=== PATIENT | female | born 1950 | race Caucasian/White ===

== ENCOUNTER 2025-06-09 16:12 | Inpatient (IN) | payer MEDICARE, OTHER ==
--- OUTSIDE RECORDS SUMMARY | 2025-06-09 16:18 | XMS REPORT | Continuity of Care Document ---
Author Name Unknown Address [address] [facility] [address] [place] [address] [facility] [place] Address [address] [facility] [address] [place] [address] Care Team Providers Care [employer] Programmer Name Role Phone Lisa Cox MD Primary Care Physician [phone] Lisa Cox Attending Clinician Unavail Anjum Nagy MD Attending Clinician [phone] ANJUM GIPSON Attending Clinician Unavail able Doctor Unassigned, Elton Attending Clinician U Merry Guerrero MA Attending Clinician Unavailabl e RADIOLOGY Attending Clinician Unavailable Radiology Attending Clinician Unavailable BONITA HERNANDEZ Attending Clinician Unavailable BONITA HERNANDEZ Attending Clinician Unavailable Doctor Unassigned, Elton Attending Clinician U AIDE Chris Attending Clinician Unavailab Aide Davis DO Attending Clinician [phone] RODNEY BARRIGA Attending Clinician Unavail able RODNEY BARRIGA Attending Clinician Unavail able Rodney Barriga MD Attending Clinician HENNY OSCAR Attending Clinician Unavailable Henny Oscar MD Attending Clinician [phone] ANJUM GIPSON Admitting Clinician Unavail able OSCAR, HENNY Admitting Clinician Unavailable Payers Payer Name Policy Type Policy Number Effective Date Expirati on Date Source [facility] Advantage PPO [id number] 2023 00:00:00 [facility] [employer] Medicare [id number] 2024 00:00:00 MEDICARE PART A \\T\\ B [id number] 2013 00:00:00 [facility] MEDICARE SUPPLEMENT [id number] 2021 00:00:00 Problems Condition Name Condition Details Condition Category Status Onset Date Resolution Date Last Treatment Date Treating Clinician Comments Source Dementia Dementia Disease Active 04-27 00:00: 00 Mary Reyna Epic No known active problems No known active problems Disease [facility] SI - Stress incontinen ce Stress incontinen ce (female) (male) Problem Common [facility] Memory loss Memory loss Problem [facility] Iron deficiency anemia due to chronic blood loss Iron deficiency anemia due to chronic blood loss Problem [facility] Essential hypertensi on Essential hypertensi on Problem [facility] Thrombocyt openia Thrombocyt openia Problem [facility] [id number] Urge incontinen ce Problem [facility] [id number] Vitamin D deficiency Problem [facility] Moderate dementia, unspecifie d dementia type, unspecifie d whether behavioral , psychotic, or mood disturbanc e or anxiety Moderate dementia, unspecifie d dementia type, unspecifie d whether behavioral , psychotic, or mood disturbanc e or anxiety Problem [facility] [id number] Overweight with body mass index (BMI) 25.0-29.9 Problem [facility] [id number] Normocytic anemia Problem [facility] [id number] BMI 25.0-25.9, adult Problem [facility] [id number] Mixed hyperlipid emia Problem [facility] [id number] Other obesity due to excess calories Problem [facility] [id number] Body mass index [BMI] 32.0-32.9, adult Problem [facility] Allergies, Adverse Reactions, Alerts Allergy Name Allergy Type Status Severity Reaction(s) Onset Date Inactive Date Treating Clinician Comments Source CODEINE DRUG INGREDI Active Med Hives 04-07 00:00: 00 MHEOUT MORPHINE DRUG INGREDI Active Med Hives 04-07 00:00: 00 MHEOUT CODEINE DRUG INGREDI Active Unknown-Cmnt 04-07 00:00: 00 [facility] MORPHINE DRUG INGREDI Active Unknown-Cmnt 04-07 00:00: 00 [facility] Codeine Propensi ty to adverse reaction s Active Hives, Unknown 04-07 00:00: 00 Memoria l Axel Epic Morphine Propensi ty to adverse reaction s Active Hives, Unknown 04-07 00:00: 00 Mary Reyna Epic morphine morphine Active Unknown Commo n [facility] ALLERGIE S NOT ON FILE SYSTEMIC Active MHEOUT Social History Social Habit Start Date Stop Date Quantity Comments Source Gender identity Butch toure Axel [facility] Sexual orientation [facility] ASSERTION Possible [facility] Sex Assigned At [facility] History of Tobacco Use [facility] Alcoholic beverage intake 2025-04-20 00:00:00 2025-04-20 00:00:00 Ex-drinker (finding) [facility] History of Social function 2025-04-20 00:00:00 2025-04-20 00:00:00 [facility] Tobacco use and exposure 2024-04-27 00:00:00 2024-04-27 00:00:00 Smokeless tobacco non-user [facility] Sex 2024-02-14 01:30:56 2024-02-14 01:30:56 Female (finding) [facility] Exposure to SARS-CoV-2 (event) 2022-12-24 00:00:00 2023-01-03 13:08:[address] [facility] Smoking Status Start Date Stop Date Source Tobacco smoking consumption unknown [facility] Ex-smoker 2024-04-27 00:00:00 2024-04-27 00:00:00 [facility] Medications Ordered Medication Name Filled Medication Name Start Date Stop Date Current Medication? Ordering Clinician Indication Dosage Frequency Signature (SIG) Comments Components Source memantine (Namenda XR) 28 MG capsule sustained-r elease 24 hr ER capsule memantine (Namenda XR) 28 MG capsule sustained-r elease 24 hr ER capsule 04-20 00:00: 00 04-20 23:59 :00 No 28mg QD Take 1 capsule by mouth [address] [facility] rivastigmin e (Exelon) 4.6 MG/24HR rivastigmin e (Exelon) 4.6 MG/24HR 04-20 00:00: 00 07-19 23:59 :00 No 1{patch } QD Place 1 patch on the skin [address] [facility] rivastigmin e (Exelon) 4.6 MG/24HR rivastigmin e (Exelon) 4.6 MG/24HR 11-11 00:00: 00 04-20 00:00 :00 No APPLY 1 PATCH TO THE SKIN DAILY [facility] memantine (Namenda) 10 MG tablet memantine (Namenda) 10 MG tablet 2023-11 00:00: 00 04-20 00:00 :00 No 10mg Q.5D Take 1 tablet by mouth in the morning and 1 tablet in the evening. [facility] Iron (Ferrous Sulfate) 325 (65 Fe) MG Iron (Ferrous Sulfate) 325 (65 Fe) MG 2023-11 00:00: 00 No 1{table t} Iron (Ferrous Sulfate) 325 (65 Fe) MG rivastigmin e (Exelon) 4.6 MG/24HR rivastigmin e (Exelon) 4.6 MG/24HR 2023-11 0 00:00: 00 11-11 00:00 :00 No 1{patch } QD Place 1 patch over 24 hours on the skin [address] [facility] Exelon 4.6 MG/24HR Exelon 4.6 MG/24HR 07-28 00:00: 00 08-16 00:00 :00 No 1{patch } QD Place 1 patch over 24 hours on the skin 1 time each day. Mary Keene galantamine (Razadyne) 4 MG tablet galantamine (Razadyne) 4 MG tablet 04-27 00:00: 00 07-28 00:00 :00 No 4mg Q.5D Take 1 tablet by mouth in the morning and 1 tablet in the evening. Mary Keene gadoteridol (PROHANCE-1 0 mL) injection 0.2 mL/kg 04-13 21:15: 00 04-13 21:03 :00 No [id number] .2mL/kg 0.2 mL/kg, Intravenou s, ONCE, 1 dose, On Fri04/13/24 at 1615, Routine [facility] lisinopril- hydroCHLORO thiazide 10-12.5 MG tablet lisinopril- hydroCHLORO thiazide 10-12.5 MG tablet 03-17 00:00: 00 Yes 1{tbl} QD Take 1 tablet by mouth 1 time each day. Mary Keene furosemide (Lasix) 40 MG tablet furosemide (Lasix) 40 MG tablet 03-17 00:00: 00 Yes 40mg QD Take 40 mg by mouth 1 time each day. Mary Keene memantine (Namenda) 10 MG tablet memantine (Namenda) 10 MG tablet 03-17 00:00: 00 09-21 00:00 :00 No 10mg Q.5D Take 10 mg by mouth in the morning and 10 mg in the evening. Mary Keene estradioL (ESTRACE) 0.01 % (0.1 mg/gram) vaginal cream 02-22 00:00: 00 Yes [id number] Apply 1g vaginally at bedtime every night for 2 weeks and then apply 1g vaginally at bedtime 3 times per week [facility] sulfamethox azole-trime thoprim (BACTRIM DS) 800-160 mg per tablet 1 tablet 2-07 08:00: 00 12-10 07:30 :00 No 1{tbl} 1 tablet, Oral, ONCE, 1 dose, On Fri12/10/23 at 0200, GURINDER
Re ason for Anti-Infec tive: Documented Infection< br>Documen petra Infection Site: Urine
D uration of Therapy: 7 days [facility] sulfamethox azole-trime thoprim 800-160 mg per tablet 2 00:00: 00 12-16 05:59 :00 No [id number] 1{tbl} Take 1 tablet by mouth every 12 (twelve) hours for 5 days. [facility] cefTRIAXone (ROCEPHIN) 1,000 mg in NaCl 0.9% (NS) 50 mL MINI-BAG 12-03 10:30: 00 12-03 11:37 :00 No 1000mg 1,000 mg, IV Piggyback, ONCE, 1 dose, On Fri12/03/22 at 0430, Administer over 30 Minutes, 50 mL
Reas on for Anti-Infec tive: Documented Infection< br>Documen petra Infection Site: Urine
D uration of Therapy: Other (see Comments) [facility] cefdinir 300 mg capsule 12-03 00:00: 00 Yes [id number] 300mg Take 1 capsule by mouth in the morning and 1 capsule in the evening. [facility] furosemide 20 mg tablet 04-08 00:00: 00 Yes [facility] Galantamine Hydrobromid e 4 MG Galantamine Hydrobromid e 4 MG No 1{table t_with_ meals} BID Galantamin e Hydrobromi de 4 MG Vitamin D3 1.25 MG (69802 UT) Vitamin D3 1.25 MG (20671 UT) No 1{table t} Vitamin D3 1.25 MG (10497 UT) Memantine HCl 10 MG Memantine HCl 10 MG No 1{table t} QD Memantine HCl 10 MG Atorvastati n Calcium 40 MG Atorvastati n Calcium 40 MG No 1{table t} QD Atorvastat in Calcium 40 MG Fish Oil Double Strength 1200 MG Fish Oil Double Strength 1200 MG No 2{capsu le} QD Fish Oil Double Strength 1200 MG Furosemide 40 MG Furosemide 40 MG No 1{table t} QD Furosemide 40 MG Vital Signs Vital Name Observation Time Observation Value Comments S nyla Systolic blood pressure 2025-04-20 14:45:00 164 mm[Hg] [facility] Diastolic blood pressure 2025-04-20 14:45:00 68 mm[Hg] [facility] Heart rate 2025-04-20 14:45:00 85 /min [facility] Body temperature 2025-04-20 14:45:00 37.11 [facility] Respiratory rate 2025-04-20 14:45:00 16 /min [facility] Body height 2025-04-20 14:45:00 163.8 cm Butch [facility] Body weight 2025-04-20 14:45:[address] [facility] BMI 2025-04-20 14:45:00 24.78 kg/m2 Butch [facility] Oxygen saturation in Arterial blood by Pulse oximetry 2025-04-20 14:45:00 97 /min [facility] Systolic blood pressure 2025-04-20 14:45:00 164 mm[Hg] [facility] Diastolic blood pressure 2025-04-20 14:45:00 68 mm[Hg] [facility] Heart rate 2025-04-20 14:45:00 85 /min [facility] Body temperature 2025-04-20 14:45:00 37.11 [facility] Respiratory rate 2025-04-20 14:45:00 16 /min [facility] Body height 2025-04-20 14:45:00 163.8 cm Butch [facility] Body weight 2025-04-20 14:45:[address] [facility] BMI 2025-04-20 14:45:00 24.78 kg/m2 Butch [facility] Oxygen saturation in Arterial blood by Pulse oximetry 2025-04-20 14:45:00 97 /min [facility] height 2025-02-17 13:45:00 62 [in_i] [facility] weight 2025-02-17 13:45:00 132.4 [lb_av] Co [facility] temperature 2025-02-17 13:45:00 97.8 [degF] Com [facility] bmi 2025-02-17 13:45:00 24.21 kg/m2 Comm on [facility] oximetry 2025-02-17 13:45:00 99 % Commo n [facility] respiratory rate 2025-02-17 13:45:00 16 /min Common [facility] blood pressure systolic 2025-02-17 13:45:00 138 mm[Hg] [facility] blood pressure diastolic 2025-02-17 13:45:00 72 mm[Hg] [facility] height 2025-02-17 13:45:00 62 [in_i] Commo n [facility] weight 2025-02-17 13:45:00 132.4 [lb_av] Co mmon [facility] temperature 2025-02-17 13:45:00 97.8 [degF] Com [facility] bmi 2025-02-17 13:45:00 24.21 kg/m2 Comm on [facility] oximetry 2025-02-17 13:45:00 99 % Commo n [facility] respiratory rate 2025-02-17 13:45:00 16 /min [facility] blood pressure systolic 2025-02-17 13:45:00 138 mm[Hg] [facility] blood pressure diastolic 2025-02-17 13:45:00 72 mm[Hg] [facility] Systolic blood pressure 2024-12-22 14:43:00 160 mm[Hg] [facility] Diastolic blood pressure 2024-12-22 14:43:00 72 mm[Hg] [facility] Heart rate 2024-12-22 14:43:00 67 /min [facility] Body temperature 2024-12-22 14:43:[address] [facility] Respiratory rate 2024-12-22 14:43:00 16 /min [facility] Body height 2024-12-22 14:43:00 162.6 cm Butch rial Axel Epic Body weight 2024-12-22 14:43:00 66.225 kg Butch rial Hubbard [facility] BMI 2024-12-22 14:43:00 25.06 kg/m2 Butch rial [facility] Epic Oxygen saturation in Arterial blood by Pulse oximetry 2024-12-22 14:43:00 99 /min [facility] Systolic blood pressure 2024-12-22 14:43:00 160 mm[Hg] [facility] Diastolic blood pressure 2024-12-22 14:43:00 72 mm[Hg] [facility] Heart rate 2024-12-22 14:43:00 67 /min [facility] Body temperature 2024-12-22 14:43:[address] [facility] Respiratory rate 2024-12-22 14:43:00 16 /min [facility] Body height 2024-12-22 14:43:00 162.6 cm [facility] Body weight 2024-12-22 14:43:00 [facility].225 [facility] 2024-12-22 14:43:00 25.06 kg/m2 Butch rial Hubbard Epic Oxygen saturation in Arterial blood by Pulse oximetry 2024-12-22 14:43:00 99 /min [facility] Systolic blood pressure 2024-09-21 14:29:00 175 mm[Hg] [facility] Diastolic blood pressure 2024-09-21 14:29:00 79 mm[Hg] [facility] Heart rate 2024-09-21 14:29:00 60 /min [facility] Axel [facility] Body temperature 2024-09-21 14:29:[address] [facility] Respiratory rate 2024-09-21 14:29:00 16 /min [facility] Body height 2024-09-21 14:29:00 163.2 cm Butch rial Axel [facility] Body weight 2024-09-21 14:29:00 58.514 kg Butch rial Axel [facility] BMI 2024-09-21 14:29:00 21.97 kg/m2 Butch rial Axel Epic Oxygen saturation in Arterial blood by Pulse oximetry 2024-09-21 14:29:00 98 /min [facility] Epic Systolic blood pressure 2024-09-21 14:29:00 175 mm[Hg] [facility] Diastolic blood pressure 2024-09-21 14:29:00 79 mm[Hg] [facility] Epic Heart rate 2024-09-21 14:29:00 60 /min [facility] Epic Body temperature 2024-09-21 14:29:00 36.39 [facility] Res[facility] rate 2024-09-21 14:29:00 16 /min [facility] Epic Body height 2024-09-21 14:29:00 163.2 cm Butch rial [facility] Epic Body weight 2024-09-21 14:29:00 58.514 kg Butch rial [facility] Epic BMI 2024-09-21 14:29:00 21.97 kg/m2 Butch rial Axel Epic Oxygen saturation in Arterial blood by Pulse oximetry 2024-09-21 14:29:00 98 /min [facility] Epic Systolic blood pressure 2024-07-28 13:27:00 146 mm[Hg] [facility] Epic Diastolic blood pressure 2024-07-28 13:27:00 77 mm[Hg] [facility] Epic Heart rate 2024-07-28 13:27:00 76 /min Mem[facility] Epic Body temperature 2024-07-28 13:27:00 37.39 Rosalinda [facility] Axel Epic Respiratory rate 2024-07-28 13:27:00 16 /min [facility] Epic Body height 2024-07-28 13:27:00 160 cm Butch rial [facility] Epic Body weight 2024-07-28 13:27:00 61.236 kg Butch rial [facility] Epic BMI 2024-07-28 13:27:00 23.91 kg/m2 Butch rial [facility] Epic Oxygen saturation in Arterial blood by Pulse oximetry 2024-07-28 13:27:00 97 /min [facility] Epic Systolic blood pressure 2024-07-28 13:27:00 146 mm[Hg] [facility] Epic Diastolic blood pressure 2024-07-28 13:27:00 77 mm[Hg] [facility] Heart rate 2024-07-28 13:27:00 76 /min Memor ial Axel Epic Body temperature 2024-07-28 13:27:00 37.39 [facility] Respiratory rate 2024-07-28 13:27:00 16 /min [facility] Body height 2024-07-28 13:27:00 160 cm Butch rial Axel Epic Body weight 2024-07-28 13:27:00 61.236 kg Butch rial [facility] Epic BMI 2024-07-28 13:27:00 23.91 kg/m2 Butch rial [facility] Epic Oxygen saturation in Arterial blood by Pulse oximetry 2024-07-28 13:27:00 97 /min [facility] Systolic blood pressure 2024-04-27 13:22:00 139 mm[Hg] [facility] Diastolic blood pressure 2024-04-27 13:22:00 76 mm[Hg] [facility] Heart rate 2024-04-27 13:22:00 55 /min Memor ial Axel [facility] Body temperature 2024-04-27 13:22:00 36.72 [facility] Respiratory rate 2024-04-27 13:22:00 16 /min [facility] Body height 2024-04-27 13:22:00 162.6 cm Butch rial Axel [facility] Body weight 2024-04-27 13:22:00 60.51 kg Butch rial Axel Epic BMI 2024-04-27 13:22:00 22.90 kg/m2 Butch rial [facility] Epic Oxygen saturation in Arterial blood by Pulse oximetry 2024-04-27 13:22:00 97 /min [facility] Systolic blood pressure 2024-04-27 13:22:00 139 mm[Hg] [facility] Diastolic blood pressure 2024-04-27 13:22:00 76 mm[Hg] [facility] Heart rate 2024-04-27 13:22:00 55 /min Mem[facility] ial Axel [facility] Body temperature 2024-04-27 13:22:[address] [facility] Epic Respiratory rate 2024-04-27 13:22:00 16 /min [facility] Body height 2024-04-27 13:22:00 162.6 cm Butch rial Axel Epic Body weight 2024-04-27 13:22:00 60.51 kg Butch Reyna [facility] BMI 2024-04-27 13:22:00 22.90 kg/m2 Butch Reyna [facility] Oxygen saturation in Arterial blood by Pulse oximetry 2024-04-27 13:22:00 97 /min [facility] Systolic blood pressure 2024-02-23 16:06:00 124 mm[Hg] [facility] Diastolic blood pressure 2024-02-23 16:06:00 69 mm[Hg] [facility] Heart rate 2024-02-23 16:06:00 78 /min Unive [facility] Body temperature 2024-02-23 16:06:[address] [facility] Respiratory rate 2024-02-23 16:06:00 18 /min [facility] Body height 2024-02-23 16:06:[address] [facility] Body weight 2024-02-23 16:06:00 57.153 kg [facility] BMI 2024-02-23 16:06:00 22.32 kg/m2 Univ [facility] Systolic blood pressure 2024-01-21 16:56:00 187 mm[Hg] [facility] Diastolic blood pressure 2024-01-21 16:56:00 91 mm[Hg] [facility] Heart rate 2024-01-21 16:56:00 72 /min Unive [facility] Body temperature 2024-01-21 16:55:[address] [facility] Respiratory rate 2024-01-21 16:55:00 20 /min [facility] Body weight 2024-01-21 16:55:[address] [facility] BMI 2024-01-21 16:55:00 24.05 kg/m2 Univ [facility] Systolic blood pressure 2023-12-10 07:46:00 180 mm[Hg] [facility] Diastolic blood pressure 2023-12-10 07:46:00 96 mm[Hg] [facility] Heart rate 2023-12-10 07:46:00 70 /min Unive [facility] Body temperature 2023-12-10 07:46:[address] [facility] Respiratory rate 2023-12-10 07:46:00 16 /min [facility] Oxygen saturation in Arterial blood by Pulse oximetry 2023-12-10 07:46:00 100 /min [facility] Body height 2023-12-10 04:02:[address] [facility] Body weight 2023-12-10 04:02:[address] [facility] BMI 2023-12-10 04:02:00 23.79 kg/m2 Univ [facility] Systolic blood pressure 2023-01-03 19:38:00 167 mm[Hg] [facility] Diastolic blood pressure 2023-01-03 19:38:00 79 mm[Hg] [facility] Heart rate 2023-01-03 19:37:00 65 /min Unive [facility] Body height 2023-01-03 19:37:[address] [facility] Body weight 2023-01-03 19:37:00 77.111 kg [facility] BMI 2023-01-03 19:37:00 27.44 kg/m2 [facility] Oxygen saturation in Arterial blood by Pulse oximetry 2023-01-03 19:37:00 100 /min [facility] Systolic blood pressure 2022-12-03 09:17:00 183 mm[Hg] [facility] Diastolic blood pressure 2022-12-03 09:17:00 84 mm[Hg] [facility] Heart rate 2022-12-03 09:17:00 88 /min Unive [facility] Body temperature 2022-12-03 09:17:[address] [facility] Respiratory rate 2022-12-03 09:17:00 17 /min [facility] Body height 2022-12-03 09:17:[address] [facility] Body weight 2022-12-03 09:17:00 81.647 kg [facility] BMI 2022-12-03 09:17:00 29.05 kg/m2 [facility] Oxygen saturation in Arterial blood by Pulse oximetry 2022-12-03 09:17:00 100 /min [facility] Systolic blood pressure 2022-06-07 14:58:00 191 mm[Hg] [facility] Diastolic blood pressure 2022-06-07 14:58:00 77 mm[Hg] [facility] Heart rate 2022-06-07 14:42:00 69 /min [facility] Body height 2022-06-07 14:42:00 167.6 cm [facility] Body weight 2022-06-07 14:42:00 76.658 kg [facility] BMI 2022-06-07 14:42:00 27.28 kg/m2 [facility] Oxygen saturation in Arterial blood by Pulse oximetry 2022-06-07 14:42:00 98 /min [facility] Procedures Procedure Date / Time Performed Performing Clinician Source PHYSICIAN ORDERS 2024-06-10 19:52:53 Doctor Unas signed, Elton [facility] MR BRAIN W WO CONTRAST WITH NEUROQUANT 2024-04-13 20:15:00 Requisition, Paper [facility] CONSENT/REFUSAL FOR DIAGNOSIS AND TREATMENT 2024-01-21 16:39:16 Doctor Unassigned, Elton [facility] REFERRAL- REQUEST/RESPONSE 2024-01-13 05:01:00 Doctor Unassigned, Elton [facility] ASSIGNMENT OF BENEFITS 2023-12-10 06:39:43 Docto r Unassigned, Elton [facility] URINALYSIS 2023-12-10 06:33:[facility] AND TREATMENT 2023-12-10 03:56:35 Doctor Unassigned, Elton [facility] URINALYSIS 2022-12-03 09:43:00 [facility] URINE DRUG (IMMUNOASSAY) - COMPREHENSIVE DRUG SCREEN W/O REFLEX 2022-12-03 09:43:[address] [facility] TROPONIN I 2022-12-03 09:29:00 Henny Oscar [facility] FREE T4 2022-12-03 09:29:00 [facility] THYROID STIMULATING HORMONE 2022-12-03 09:29:[address] [facility] COMP. METABOLIC PANEL ([id number]) 2022-12-03 09:29:[address] [facility] ETHANOL 2022-12-03 09:29:00 [facility] CBC WITH DIFF 2022-12-03 09:29:[address] [facility] PROTHROMBIN TIME / INR 2022-12-03 09:29:[address] [facility] ACTIVATED PARTIAL THRMPLAS ROSI 2022-12-03 09:29:[address] [facility] N-TERMINAL PRO-BNP 2022-12-03 09:29:[address] [facility] Encounters Start Date/Time End Date/Time Encounter Type Admission Type Attending [facility] Care Department Encounter ID Source 2025-01-21 09:26:00 Outpatient [facility] [id number] [facility] 2024-08-12 08:00:00 Outpatient Lisa Cox [facility] [id number] [facility] 2024-01-28 14:57:00 Outpatient Lisa Cox [facility] [id number] [facility] 2023-12-22 13:01:01 Outpatient Lisa Cox [facility] [id number] [facility] 2025-05-29 00:00:00 2025-05-29 00:00:00 (TEL) STLC STLC [id number] [facility] 2025-05-18 00:00:00 2025-05-18 00:00:00 (TEL) STLC STLC [id number] [facility] 2025-05-18 00:00:00 2025-05-18 00:00:00 (TEL) STLMLC STLMLC [id number] [facility] 2025-04-20 14:15:00 2025-04-20 15:48:05 Office Visit Anjum Gipson 1..840.114 350.1.13.70 8.2.7.2.686 [id number] [facility] 2025-04-20 14:03:12 2025-04-20 15:48:05 Outpatient Elective ANJUM GIPSON MHEOUT MHEOUT [id number] [facility] 2025-02-21 00:00:00 2025-02-21 00:00:00 (TEL) STLMLC STLMLC [id number] [facility] 2025-02-17 00:00:00 2025-02-17 00:00:00 OFFICE VISIT ESTAB PT LEVEL 4 STLMLC STLMLC [id number] [facility] 2025-02-17 00:00:00 2025-02-17 00:00:00 SUB ANNUAL [facility] V[facility] STLMLC STLMLC [id number] [facility] 2025-02-17 00:00:00 2025-02-17 00:00:00 (TEL) STLMLC STLMLC [id number] [facility] 2024-12-22 14:45:00 2024-12-22 15:24:01 Office Visit Anjum Gipson Maricruz 1..840.114 350.1.13.70 8.2.7.2.686 [id number] [facility] 2024-12-22 14:28:45 2024-12-22 15:24:01 Outpatient ANJUM GIPSON MHEOUT MHEOUT [id number] MHEOUT 2024-06-10 00:00:00 2024-12-18 07:10:32 Orders Only Doctor Unassigned, Elton Doctor Unassigned, Elton [facility]) 1.2.840.114 350.1.13.10 4.2.7.2.686 [id number] [facility] 2024-11-11 00:00:00 2024-11-11 09:09:22 RefAnjum Carver Mar[place] 1.2.840.114 350.1.13.70 8.2.7.2.686 [id number] Mary [facility] 2024-09-21 13:53:56 2024-09-21 15:07:20 Outpatient Elective ANJUM GIPSON MHEOUT MHEOUT [id number] MHEOUT 2024-09-21 14:00:00 2024-09-21 14:15:00 Office Visit Anjum Gipson [place] 1.2.840.114 350.1.13.70 8.2.7.2.686 [id number] 2024-08-16 00:00:00 2024-08-16 13:07:43 Orders Only Anjum Gipson Mar[place]ruz 1.2.840.114 350.1.13.70 8.2.7.2.686 [id number] [facility] 2024-07-28 13:15:00 2024-07-28 14:04:24 Office Visit Anjum Gipson Mar[place] 1.2.840.114 350.1.13.70 8.2.7.2.686 [id number] [facility] 2024-07-28 13:07:12 2024-07-28 14:04:24 Outpatient LOREANJUM CALIXTO AvelinoOUT EOUT [id number] EOUT 2024-05-04 00:00:00 2024-06-04 23:52:49 Telephone Merry Osullivan [facility] [place] 1.2.840.114 350.1.13.70 8.2.7.2.686 [id number] Memmarcial Reyna [facility] 2024-04-27 13:16:32 2024-04-27 14:48:50 Outpatient ANJUM GIPSON EOUT [facility] [id number] MHEOUT 2024-04-27 13:00:00 2024-04-27 14:48:50 Office Visit Anjum Gipson 1.2.840.114 350.1.13.70 8.2.7.2.686 [id number] Mary Reyna [facility] 2024-04-13 13:21:26 2024-04-13 23:59:00 Outpatient R RADIOLOGY [facility] [id number] [facility] 2024-04-13 13:21:26 2024-04-13 23:59:00 Hospital Encounter Radiology [facility] 1.2.840.114 350.1.13.10 4.2.7.2.686 [id number] [facility] 2024-02-23 11:00:00 2024-02-23 12:14:00 Outpatient R BONITA HERNANDEZ BONITA [facility] [id number] [facility] 2024-02-23 11:00:00 2024-02-23 12:14:00 Office Visit Aissatou Hernandezha [facility] PROFESSIO [facility] 1.2.840.114 350.1.13.10 4.2.7.2.686 [id number] [facility] 2024-01-21 11:30:00 2024-01-21 12:16:52 [facility] [id number] 2024-01-21 11:30:00 2024-01-21 12:16:52 Office Visit Bonita Hernandez [facility] 1.2.840.114 350.1.13.10 4.2.7.2.686 [id number] [facility] 2024-01-21 00:00:00 2024-01-21 00:00:00 Orders Only Doctor Unassigned, Elton [facility] 1.2.840.114 350.1.13.10 4.2.7.2.686 [id number] [facility] 2024-01-13 00:00:00 2024-01-13 00:00:00 Orders Only Doctor Unassigned, Elton [facility] 1.2.840.114 350.1.13.10 4.2.7.2.686 [id number] [facility] 2023-12-09 22:07:00 2023-12-10 01:53:00 Emergency X AIDE DIOR [facility] ERT [id number] [facility] 2023-12-09 22:07:00 2023-12-10 01:53:00 Emergency Aide Dior [facility] 1.2.840.114 350.1.13.10 4.2.7.2.686 [id number] [facility] 2023-03-21 09:40:00 2023-03-21 09:40:00 Outpatient RODNEY LEWIS HOWARD [facility] [id number] [facility] 2023-03-18 13:00:00 2023-03-18 13:00:00 Outpatient RODNEY LEWIS HOWARD [facility] [id number] [facility] 2023-02-28 14:20:00 2023-02-28 14:20:00 Outpatient RODNEY LEWIS HOWARD [facility] [id number] [facility] 2023-02-25 13:00:00 2023-02-25 13:00:00 Outpatient RODNEY LEWIS HOWARD [facility] [id number] [facility] 2023-01-03 13:00:00 2023-01-03 14:55:49 Outpatient RODNEY LEWIS HOWARD [facility] [id number] [facility] 2023-01-03 13:00:00 2023-01-03 14:55:49 Office Visit Rodney Barriga [facility] 1..840.114 350.1.13.10 4.2.7.2.686 [id number] [facility] 2022-12-13 10:40:00 2022-12-13 10:40:00 Outpatient RODNEY LEWIS HOWARD [facility] [id number] [facility] 2022-12-03 03:12:00 2022-12-03 06:02:00 Emergency X EDDIE [facility] [id number] [facility] 2022-12-03 03:12:00 2022-12-03 06:02:00 Emergency Henny Oscar [facility] 1.840.114 350.1.13.10 4.2.7.2.686 [id number] [facility] 2022-06-07 09:20:00 2022-06-07 10:55:10 Outpatient RODNEY LEWIS HOWARD [facility] [id number] [facility] 2022-06-07 09:20:00 2022-06-07 10:55:10 [facility] 1..840.114 350.1.13.10 4.2.7.2.686 [id number] [facility] 2022-06-07 00:00:00 2022-06-07 00:00:00 Orders Only Doctor Unassigned, Elton [facility] 1..840.114 350.1.13.10 4.2.7.2.686 [id number] [facility] 2022-05-02 00:00:00 2022-05-02 00:00:00 Telephone Rodney Barriga [facility] 1.2.840.114 350.1.13.10 4.2.7.2.686 [id number] [facility] 2022-04-07 14:06:00 2022-04-07 18:09:00 Emergency X HENNY OSCAR [facility] ERT [id number] [facility] 2022-04-07 14:06:00 2022-04-07 18:09:00 Emergency Henny Oscar [facility] 1.2.840.114 350.1.13.10 4.2.7.2.686 [id number] [facility] Results Test Description Test Time Test Comments Results Result Comments Source PHYSICIAN ORDERS 19:52:53 Ordered by an unspecified provider. [facility] MR BRAIN W WO CONTRAST WITH NEUROQUANT 22:07:42 MR BRAIN W WO CONTRAST WITH NEUROQUANT COMPARISON: None. Correlation with CT head 12/03/2022 HISTORY: Dementia, memory loss. TECHNIQUE: Multiplanar and multi sequential MRI of the brain with andwithout contrast. Quantitative volumetry of the brain was performed usingNeuroQuant ([employer], [place], [place]) software package. TheNeuroQuant analysis was based on a sagittal 3D volumetric MPRAGE pulsesequence. FINDINGS: The ventricles and cerebral sulci are unchanged in caliber andconfiguration. No midline shift, hydrocephalus or pathological extra-axialfluid collection is present. The basal cisterns are unremarkable. No restricted diffusion is present to suggest acute infarct. . Minimalperiventricular T2/FLAIR hyperintensities are present, nonspecific. Noabnormal gradient blooming. No abnormal intracranial enhancement. The T2 flow voids for the major intracranial vessels are unremarkable. Noabnormal fluid signal is present in the mastoid air cells or paranasal airsinuses. Age Related Atrophy report demonstrates: Hippocampal Occupancy Score: 0.66 with normative percentile of 13.Hippocampi volume: 4.97 cc, normative percentile of 16.Superior Lateral Ventricles volume: 46.2, normative percentile of 89. Inferior Lateral Ventricles volume: 2.63, normative percentile of 83.Temporal cortex: 87.6 cc, normative percentile of 1.Parietal cortex: 77.3 cc, normative percentile of 1.Frontal cortex: 123 cc, normative percentile of 1.Occipital cortex: 40.6 cc, normative percentile of 44.Anterior cingulate cortex: 8.44 cc, normative percentile of 98.Posterior cingulate cortex: 3.96 cc, normative percentile of 1. The values listed above were within 2 SD of the mean. [facility] 10:41:45 ALCOHOL<10mg/dL12/03/2022 4:41 AM [facility]<10 [id number] Toxic>100 Depression of PARENT PARTNER>400 Fatalities ReportedUnMemorial Hermann Southeast HospitalFR [id number] 10:32:56* Test Item Value Reference Range Interpretation Comme nts FREE T4 (test code = 1779588097) 1.34 See_Comment [Automated messa ge] The system which generated this result transmitted reference range: 0.78 - 2.20 ng/dL:. The reference range was not used to interpret this result as normal/abnormal. Lab Interpretation (test code = 23157-0) Normal [facility] [id number] 10:27:17* Test Item Value Reference Range Interpretation Comments TROPONIN I (test code = 8058293397) 0.010 ng/mL See_Comment [Automated message] The system which generated this result transmitted reference range: <=0.034. The reference range was not used to interpret this result as normal/abnormal. CJ (test code = CJ) Reference (Normal) Range (defined by the 99th percentile reference limit): <= 0.034 ng/mL Note: Cardiac troponin begins to rise 3-4 hours after the onset of ischemia. Repeat in 4-6 hours if the sample was drawn within 3-4 hours of the onset of the symptom and found normal. Diagnosis of myocardial injury is made with acute changes in cTn concentrations with at least one serial sample above the 99th percentile upper reference limit (URL), taken together with the patient's clinical presentation. Biotin has been reported to cause a negative bias, interpret results relative to patient's use of biotin. Lab Interpretation (test code = 56865-5) Normal [facility] [id number] 10:24:16* Test Item Value Reference Range Interpretation Comme nts NT-proBNP (test code = 6370626112) 271 pg/mL See_Comment H [Automated message] The system which generated this result transmitted reference range: <=125. The reference range was not used to interpret this result as normal/abnormal. CJ (test code = CJ) Biotin has been reported to cause a negative bias, interpret results relative to patient's use of biotin. Lab Interpretation (test code = 36539-3) Abnormal [facility] METABOLIC PANEL (64222)2022-12-03 10:08:56* Test Item Value Reference Range Interpretation Comme nts NA (test code = 3704216071) 140 mmol/L 135-145 K (test code = 4900680206) 3.8 mmol/L 3.5-5.0 CL (test code = 7278726902) 104 mmol/L 98-108 CO2 TOTAL (test code = 4174951315) 28 mmol/L 23-31 AGAP (test code = 8290856940) 8 2-16 BUN (test code = 2780031773) 17 mg/dL 7-23 GLUCOSE (test code = 1670702711) 113 mg/dL 70-110 H CREATININE (test code = 2303865462) 0.73 mg/dL 0.50-1.04 TOTAL BILI (test code = 8594633807) 0.8 mg/dL 0.1-1.1 CALCIUM (test code = 4246587075) 8.8 mg/dL 8.6-10.6 T PROTEIN (test code = 0910411936) 7.0 g/dL 6.3-8.2 ALBUMIN (test code = 9302949977) 4.2 g/dL 3.5-5.0 ALK PHOS (test code = 7104155375) 64 U/L 34-122 ALTv (test code = 1742-6) 15 U/L 5-35 AST(SGOT) (test code = 2729117984) 21 U/L 13-40 eGFR (test code = 3608070099) 78.1 mL/min/1.73m2 CJ (test code = CJ) Association of Glomerular Filtration Rate (GFR) and Staging of Kidney Disease* + --+ --+ ------+| GFR (mL/min/1.73 m2) ?| With Kidney Damage ?| ?Without Kidney Damage+ --------+ --------+ +| ?>90 ?| ?Stage one ?| ? Normal ?+ ---+ ---+ -------+| ?60-89 ?| ?Stage two ?| ? Decreased GFR ? + --+ --+ ------+| ?30-59 ?| ?Stage three ?| ? Stage three ? + --+ --+ ------+| ?15-29 ?| ?Stage four ? | ? Stage four ?+ ---+ ---+ -------+| ?<15 (or dialysis) ? ?| ?Stage five ? | ? Stage five ?+ ---+ ---+ -------+ *Each stage assumes the associated GFR level has been in effect for at least three months. ?Stages 1 to 5, with or without kidney disease, indicate chronic kidney disease. Notes: Determination of stages one and two (with eGFR >59mL/min/1.73 m2) requires estimation of kidney damage for at least three months as defined by structural or functional abnormalities of the kidney, manifested by either:Pathological abnormalities or Markers of kidney damage (including abnormalities in the composition of the blood or urine or abnormalities in imaging tests). Lab Interpretation (test code = 09372-5) Abnormal [facility] THRMPLAS [id number] 10:05:53* Test Item Value Reference Range Interpretation Comme [facility] APTT Patient (test code = 3173-2) 26 See_Comment [Automated message] The system which generated this result transmitted reference range: 23 - 38 Seconds. The reference range was not used to interpret this result as normal/abnormal. CJ (test code = CJ) The [facility] patient population mean normal value for aPTT is 30 seconds. Lab Interpretation (test code = 62201-1) Normal [facility] / [id number] 10:03:56* Test Item Value Reference Range Interpretation Comme [facility] PROTIME PATIENT (test code = 5964-2) 14.1 See_Comment [Automated [employer] ge] The system which generated this result transmitted reference range: 12.0 - 14.7 Seconds. The reference range was not used to interpret this result as normal/abnormal. INR (test code = 6301-6) 1.1 Normal INR <1.1; Warfarin Therapeutic range 2.0 to 3.0 or 2.5 to 3.5, depending upon the indications. Lab Interpretation (test code = 45856-8) Normal [facility] WITH [id number] 09:55:54* Test Item Value Reference Range Interpretation Comme nts WBC (test code = 6690-2) 4.97 See_Comment [Automated messa ge] The system which generated this result transmitted reference range: 4.30 - 11.10 10*3/?L. The reference range was not used to interpret this result as normal/abnormal. RBC (test code = 789-8) 3.19 See_Comment L [Automated messa ge] The system which generated this result transmitted reference range: 3.93 - 5.25 10*6/?L. The reference range was not used to interpret this result as normal/abnormal. HGB (test code = 718-7) 10.1 g/dL 11.6-15.0 L HCT (test code = 4544-3) 31.3 % 35.7-45.2 L MCV (test code = 787-2) 98.1 fL 80.6-95.5 H MCH (test code = 785-6) 31.7 pg 25.9-32.8 MCHC (test code = 786-4) 32.3 g/dL 31.6-35.1 RDW-SD (test code = 00213-8) 54.6 fL 39.0-49.9 H RDW-CV (test code = 788-0) 14.9 % 12.0-15.5 PLT (test code = 777-3) 129 See_Comment L [Automated messa ge] The system which generated this result transmitted reference range: 166 - 358 10*3/?L. The reference range was not used to interpret this result as normal/abnormal. MPV (test code = 66602-8) 10.0 fL 9.5-12.9 NRBC/100 WBC (test code = 4003877615) 0.0 See_Comment [Automated [employer] ssage] The system which generated this result transmitted reference range: 0.0 - 10.0 /100 WBCs. The reference range was not used to interpret this result as normal/abnormal. NRBC x10^3 (test code = 8856677043) See_Comment [Automated messa ge] The system which generated this result transmitted reference range: 10*3/?L. The reference range was not used to interpret this result as normal/abnormal. GRAN MAT (NEUT) % (test code = 770-8) 61.0 % IMM GRAN % (test code = 0099072115) 0.20 % LYMPH % (test code = 736-9) 22.3 % MONO % (test code = 5905-5) 13.5 % EOS % (test code = 713-8) 2.4 % BASO % (test code = 706-2) 0.6 % GRAN MAT x10^3(ANC) (test code = 4441817371) 3.03 10*3/uL 1.88-7.09 IMM GRAN x10^3 (test code = 6263522005) 0.00-0.06 LYMPH x10^3 (test code = 731-0) 1.11 10*3/uL 1.32-3.29 L MONO x10^3 (test code = 742-7) 0.67 10*3/uL 0.33-0.92 EOS x10^3 (test code = 711-2) 0.12 10*3/uL 0.03-0.39 BASO x10^3 (test code = 704-7) 0.03 10*3/uL 0.01-0.07 Lab Interpretation (test code = 73257-5) Abnormal [facility] Notes has a current medication list which includes the following prescription(s):Vitals:Neurological ExamCranial NervesMotorSensoryReflexesGaitNo results found for this or any previous visit.Tests Date/Time Note Provider Source 2025-04-20 17:46:06 [facility] 2025-04-20 17:46:06 Anjum Gipson MD - 04/20/2025 2:15 PM CDT History of Present Illness HPI The patient is a 74-year-old female with a history of dementia, presenting for follow-up. She is accompanied by a family member who provides additional history. The patient reports a few instances of "wandering in the storm." She lives alone in her own house and enjoys her independence. She mentions having people staying in her house and going up and down into the attic, stating that these are "real people, not imaginary people," though others did not see them at the time. She is aware of discussions about someone potentially needing to obtain guardianship over her. Her nephew, who lives in [place], has power of tax attorney. She has no children. She manages her own medications with assistance from a family member who organizes her pill box. She is able to dress herself, brush her teeth, and shower independently. Most meals are provided, but she can use the microwave. She does not drive but goes shopping with transportation provided by a family member. She is mobile and able to walk. She is currently taking memantine but only one dose per day due to difficulty remembering the morning dose if no one is present. A family member administers the evening dose and changes her patch. Allergies as of 04/20/2025 - Reviewed 04/20/2025 Allergen Reaction Noted Codeine Hives and Unknown 04/07/2022 Morphine Hives and Unknown 04/07/2022 furosemide, lisinopril-hydrochlorothiazide, memantine, and rivastigmine. Neurological: (+) memory loss 04/20/25 1445 BP: (!) 164/68 Pulse: 85 Resp: 16 Temp: 37.1 ?C (98.8 ?F) SpO2: 97% Mental Status Awake and alert. Recalls 3 of 3 objects immediately. Speech is normal. Able to name objects and name parts of objects. MMSE score: 18. CN II: Visual acuity is normal. CN III, IV, : Extraocular movements intact bilaterally. Pupils equal round and reactive to light bilaterally. CN VII: Full and symmetric facial movement. CN XII: Tongue midline without atrophy or fasciculations. Strength is 5/5 throughout all four extremities. Light touch is normal in upper and lower extremities. Temperature is normal in upper and lower extremities. Vibration is normal in upper and lower extremities. Deep tendon reflexes: Symmetric. Casual gait is normal including stance, stride, and arm swing. No MRI head results found for the past 12 months Labs Imaging (Today) Cognitive Assessment: - Orientation: Disoriented to the current year, date, and day of the week; identified the state correctly. - Registration: Correctly repeated apple, table, and bruno initially. - Recall: Recalled 0 of the 3 words after a brief interval. - Serial Spelling: Spelled world backward as D-L-O-W, omitting the R. - Repetition: Accurately repeated No ifs, ands, or buts. - Visuospatial Task: Copied a presented figure with inaccuracy. - Writing: Followed commands (folded paper in half and returned it). # Moderate late onset Alzheimer's dementia, unspecified whether behavioral, psychotic, or mood disturbance or anxiety (HCC) (G30.1) - Patient exhibits signs of cognitive decline, including disorientation to time and difficulty with short-term memory recall. - Currently on memantine, but experiencing difficulty with adherence to twice-daily dosing. - Transitioned memantine to 28 mg extended-release formulation to simplify dosing to once daily. - Discussed living situation and potential need for guardianship; patient has a power of tax attorney in place. - Follow-up in 3-4 months to reassess cognitive function and medication adherence. - Should have 24 hour supervision Time: 35 min care services that are part of ongoing care related to this patient's single, serious condition or complex condition. [facility] Due Date Last Done Comments Bone Density Scan 1950 Lipid Panel 1950 Medicare Annual Wellness (AWV) 1950 DTaP/Tdap/Td Vaccines (1 - Tdap) 1967 Pneumococcal Vaccine: 50+ Ye ars (1 of 1 - PCV) 1998 Zoster Vaccines (1 of 2) 1998 Respiratory Syncytial Virus (RSV) Adult Series (1 - 1-dose 75+ series) 2023 Influenza Vaccine (Season Ended) 2025 HIB Vaccines Aged Out No longer eligi ble based on patient's age to complete this topic HPV Vaccines Aged Out No longer eligi ble based on patient's age to complete this topic Hepatitis A Vaccines Aged Out No long er eligible based on patient's age to complete this topic Hepatitis B Vaccines Aged Out No long er eligible based on patient's age to complete this topic IPV Vaccines Aged Out No longer eligi ble based on patient's age to complete this topic Meningococcal Vaccine Aged Out No lion gudelia eligible based on patient's age to complete this topic Rotavirus Vaccines Aged Out No longer eligible based on patient's age to complete this topic [facility] 17[facility]46:06 Diagnosis Moderate late onset Alzheime r's dementia, unspecified whether behavioral, psychotic, or mood disturbance or anxiety (HCC) - Primary [facility]160[facility]-65 17:46:06 [facility]mj[facility]ai3897-83-23 17:46:06* [facility]bk[facility]992[facility]-54 17:46:06* Anjum Gipson MD - 04/20/2025 2:15 PM CDT History of Present Illness HPI The patient is a 74-year-old female with a history of dementia, presenting for follow-up. She is accompanied by a family member who provides additional history. The patient reports a few instances of "wandering in the storm." She lives alone in her own house and enjoys her independence. She mentions having people staying in her house and going up and down into the attic, stating that these are "real people, not imaginary people," though others did not see them at the time. She is aware of discussions about someone potentially needing to obtain guardianship over her. Her nephew, who lives in [place], has power of tax attorney. She has no children. She manages her own medications with assistance from a family member who organizes her pill box. She is able to dress herself, brush her teeth, and shower independently. Most meals are provided, but she can use the microwave. She does not drive but goes shopping with transportation provided by a family member. She is mobile and able to walk. She is currently taking memantine but only one dose per day due to difficulty remembering the morning dose if no one is present. A family member administers the evening dose and changes her patch. Allergies as of 04/20/2025 - Reviewed 04/20/2025 Allergen Reaction Noted Codeine Hives and Unknown 04/07/2022 Morphine Hives and Unknown 04/07/2022 has a current medication list which includes the following prescription(s): furosemide, lisinopril-hydrochlorothiazide, memantine, and rivastigmine. Neurological: (+) memory loss Vitals:04/20/25 1445 BP: (!) 164/68 Pulse: 85 Resp: 16 Temp: 37.1 ?C (98.8 ?F) SpO2: 97% Neurological Exam Mental Status Awake and alert. Recalls 3 of 3 objects immediately. Speech is normal. Able to name objects and name parts of objects. MMSE score: 18. Cranial NervesCN II: Visual acuity is normal. CN III, IV, : Extraocular movements intact bilaterally. Pupils equal round and reactive to light bilaterally. CN VII: Full and symmetric facial movement. CN XII: Tongue midline without atrophy or fasciculations. MotorStrength is 5/5 throughout all four extremities. SensoryLight touch is normal in upper and lower extremities. Temperature is normal in upper and lower extremities. Vibration is normal in upper and lower extremities. ReflexesDeep tendon reflexes: Symmetric. GaitCasual gait is normal including stance, stride, and arm swing. No results found for this or any previous visit. No MRI head results found for the past 12 months Labs Imaging Tests(Today) Cognitive Assessment: - Orientation: Disoriented to the current year, date, and day of the week; identified the state correctly. - Registration: Correctly repeated “apple,” “table,” and “bruno” initially. - Recall: Recalled 0 of the 3 words after a brief interval. - Serial Spelling: Spelled “world” backward as “D-L-O-W,” omitting the “R.” - Repetition: Accurately repeated “No ifs, ands, or buts.” - Visuospatial Task: Copied a presented figure with inaccuracy. - Writing: Followed commands (folded paper in half and returned it). Assessment & Plan# Moderate late onset Alzheimer's dementia, unspecified whether behavioral, psychotic, or mood disturbance or anxiety (HCC) (G30.1) - Patient exhibits signs of cognitive decline, including disorientation to time and difficulty with short-term memory recall. - Currently on memantine, but experiencing difficulty with adherence to twice-daily dosing. - Transitioned memantine to 28 mg extended-release formulation to simplify dosing to once daily. - Discussed living situation and potential need for guardianship; patient has a power of tax attorney in place. - Follow-up in 3-4 months to reassess cognitive function and medication adherence. - Should have 24 hour supervision Time: 35 min I am the continuing focal point for needed health care services and medicalcare services that are part of ongoing care related to this patient's single, serious condition or complex condition. [facility] 17:46:06Upcoming Encounters Health Maintenance Due Date Last Done Comments Bone Density Scan 1948 Lipid Panel 1948 Medicare Annual Wellness (AWV) 1948 DTaP/Tdap/Td Vaccines (1 - Tdap) 1967 Pneumococcal Vaccine: 50+ Ye ars (1 of 1 - PCV) 1998 Zoster Vaccines (1 of 2) 1998 Respiratory Syncytial Virus (RSV) Adult Series (1 - 1-dose 75+ series) 2023 Influenza Vaccine (Season Ended) 2025 HIB Vaccines Aged Out No longer eligi ble based on patient's age to complete this topic HPV Vaccines Aged Out No longer eligi ble based on patient's age to complete this topic Hepatitis A Vaccines Aged Out No long er eligible based on patient's age to complete this topic Hepatitis B Vaccines Aged Out No long er eligible based on patient's age to complete this topic IPV Vaccines Aged Out No longer eligi ble based on patient's age to complete this topic Meningococcal Vaccine Aged Out No lion gudelia eligible based on patient's age to complete this topic Rotavirus Vaccines Aged Out No longer eligible based on patient's age to complete this topic [id number] 17:46:06 Diagnosis Moderate late onset Alzheime r's dementia, unspecified whether behavioral, psychotic, or mood disturbance or anxiety (HCC) - Primary [id number] 17:46:06 [facility] HospitalQvucoyx7655-75-09 17:41:00* [facility] HospitalMnzjiaq0492-52-85 17:41:00* Anjum Gipson MD - 12/22/2024 2:45 PM CASTING COORDINATOR History of Present Illness Memory Loss Not driving. On Exelon and Namenda. Lives alone. Thinks someone may be taking her medication but as noted she lives alone. Still sleepy on occasion. No new problems otherwise Allergies as of 12/22/2024 - Reviewed 12/22/2024 Allergen Reaction Noted Codeine Hives and Unknown 04/07/2022 Morphine Hives and Unknown 04/07/2022 has a current medication list which includes the following prescription(s): furosemide, lisinopril-hydrochlorothiazide, memantine, and rivastigmine. Vitals:12/22/24 1443 BP: 160/72 Pulse: 67 Resp: 16 Temp: 36.2 ?C (97.2 ?F) SpO2: 99% Neurological Exam Mental Status Awake and alert. Speech is normal. Cranial NervesCN II: Visual acuity is normal. CN III, IV, : Extraocular movements intact bilaterally. Pupils equal round and reactive to light bilaterally. CN VII: Full and symmetric facial movement. CN XII: Tongue midline without atrophy or fasciculations. MotorStrength is 5/5 throughout all four extremities. SensoryLight touch is normal in upper and lower extremities. Temperature is normal in upper and lower extremities. Vibration is normal in upper and lower extremities. ReflexesDeep tendon reflexes: Symmetric. GaitCasual gait is normal including stance, stride, and arm swing. No results found for this or any previous visit. No MRI head results found for the past 12 months Assessment & PlanDiagnoses and all orders for this visit: Moderate dementia, unspecified dementia type, unspecified whether behavioral, psychotic, or mood disturbance or anxiety (HCC) Continue Exelon and Namenda I am the continuing focal point for needed health care services and medicalcare services that are part of ongoing care related to this patient's single, serious condition or complex condition. [facility]2025-02-19 17:41:00Upcoming Encounters Health Maintenance Due Date Last Done Comments Bone Density Scan 1948 CT Colonography 1948 Colonoscopy 1948 Colorectal Cancer Screening 1948 FIT-DNA 1948 FIT 1948 FOBT 1948 Lipid Panel 1948 Medicare Annual Wellness (AWV) 1948 Sigmoidoscopy 1948 Annual Physical 1951 DTaP/Tdap/Td Vaccines (1 - Tdap) 1967 Zoster Vaccines (1 of 2) 1998 Pneumococcal Vaccine: 65+ Ye ars (1 of 1 - PCV) 2013 Respiratory Syncytial Virus (RSV) or >=60 (1 - 1-dose 75+ series) 2023 Influenza Vaccine (#1) 2024 HIB Vaccines Aged Out No longer eligi ble based on patient's age to complete this topic HPV Vaccines Aged Out No longer eligi ble based on patient's age to complete this topic Hepatitis A Vaccines Aged Out No long er eligible based on patient's age to complete this topic Hepatitis B Vaccines Aged Out No long er eligible based on patient's age to complete this topic IPV Vaccines Aged Out No longer eligi ble based on patient's age to complete this topic Meningococcal Vaccine Aged Out No lion gudelia eligible based on patient's age to complete this topic Rotavirus Vaccines Aged Out No longer eligible based on patient's age to complete this topic [facility] HospitalTmbtwhm7027-33-40 17:41:00 Diagnosis Moderate dementia, unspecifi ed dementia type, unspecified whether behavioral, psychotic, or mood disturbance or anxiety (HCC) - Primary [facility] HospitalClxfzqj3467-59-24 17:41:00 [place] [id number] 17:40:59Upcoming Encounters Health Maintenance Due Date Last Done Comments Bone Density Scan 1948 CT Colonography 1948 Colonoscopy 1948 Colorectal Cancer Screening 1948 FIT-DNA 1948 FIT 1948 FOBT 1948 Lipid Panel 1948 Medicare Annual Wellness (AWV) 1948 Sigmoidoscopy 1948 Annual Physical 1951 DTaP/Tdap/Td Vaccines (1 - Tdap) 1967 Zoster Vaccines (1 of 2) 1998 Pneumococcal Vaccine: 65+ Ye ars (1 of 1 - PCV) 2013 Respiratory Syncytial Virus (RSV) or >=60 (1 - 1-dose 75+ series) 2023 Influenza Vaccine (#1) 2024 HIB Vaccines Aged Out No longer eligi ble based on patient's age to complete this topic HPV Vaccines Aged Out No longer eligi ble based on patient's age to complete this topic Hepatitis A Vaccines Aged Out No long er eligible based on patient's age to complete this topic Hepatitis B Vaccines Aged Out No long er eligible based on patient's age to complete this topic IPV Vaccines Aged Out No longer eligi ble based on patient's age to complete this topic Meningococcal Vaccine Aged Out No lion gudelia eligible based on patient's age to complete this topic Rotavirus Vaccines Aged Out No longer eligible based on patient's age to complete this topic [facility]Rwhxwkt7426-35-53 17:40:59 Diagnosis Moderate dementia, unspecifi ed dementia type, unspecified whether behavioral, psychotic, or mood disturbance or anxiety (HCC) - Primary [facility] HospitalOtjmapr6849-23-89 17:40:59 [facility] HospitalFxhwdxc1621-21-08 17:40:59* [facility] HospitalOdkhrwo3397-88-59 17:40:59* Anjum Gipson MD - 12/22/2024 2:45 PM CASTING COORDINATOR History of Present Illness Memory Loss Not driving. On Exelon and Namenda. Lives alone. Thinks someone may be taking her medication but as noted she lives alone. Still sleepy on occasion. No new problems otherwise Allergies as of 12/22/2024 - Reviewed 12/22/2024 Allergen Reaction Noted Codeine Hives and Unknown 04/07/2022 Morphine Hives and Unknown 04/07/2022 has a current medication list which includes the following prescription(s): furosemide, lisinopril-hydrochlorothiazide, memantine, and rivastigmine. Vitals:12/22/24 1443 BP: 160/72 Pulse: 67 Resp: 16 Temp: 36.2 ?C (97.2 ?F) SpO2: 99% Neurological Exam Mental Status Awake and alert. Speech is normal. Cranial NervesCN II: Visual acuity is normal. CN III, IV, : Extraocular movements intact bilaterally. Pupils equal round and reactive to light bilaterally. CN VII: Full and symmetric facial movement. CN XII: Tongue midline without atrophy or fasciculations. MotorStrength is 5/5 throughout all four extremities. SensoryLight touch is normal in upper and lower extremities. Temperature is normal in upper and lower extremities. Vibration is normal in upper and lower extremities. ReflexesDeep tendon reflexes: Symmetric. GaitCasual gait is normal including stance, stride, and arm swing. No results found for this or any previous visit. No MRI head results found for the past 12 months Assessment & PlanDiagnoses and all orders for this visit: Moderate dementia, unspecified dementia type, unspecified whether behavioral, psychotic, or mood disturbance or anxiety (HCC) Continue Exelon and Namenda I am the continuing focal point for needed health care services and medicalcare services that are part of ongoing care related to this patient's single, serious condition or complex condition. ING COORDINATOR [facility] [id number] 09:09:32* [facility] CenterYtdjxlf2711-[facility] 09:09:32Upcoming Encounters Health Maintenance Due Date Last Done Comments Bone Density Scan 1948 CT Colonography 1948 Colonoscopy 1948 Colorectal Cancer Screening 1948 FIT-DNA 1948 FIT 1948 FOBT 1948 Lipid Panel 1948 Medicare Annual Wellness (AWV) 1948 Sigmoidoscopy 1948 Annual Physical 1951 DTaP/Tdap/Td Vaccines (1 - Tdap) 1967 Zoster Vaccines (1 of 2) 1998 Pneumococcal Vaccine: 65+ Ye ars (1 of 1 - PCV) 2013 Respiratory Syncytial Virus (RSV) or >=60 (1 - 1-dose 75+ series) 2023 Influenza Vaccine (#1) 2024 HIB Vaccines Aged Out No longer eligi ble based on patient's age to complete this topic HPV Vaccines Aged Out No longer eligi ble based on patient's age to complete this topic Hepatitis A Vaccines Aged Out No long er eligible based on patient's age to complete this topic Hepatitis B Vaccines Aged Out No long er eligible based on patient's age to complete this topic IPV Vaccines Aged Out No longer eligi ble based on patient's age to complete this topic Meningococcal Vaccine Aged Out No lion gudelia eligible based on patient's age to complete this topic Rotavirus Vaccines Aged Out No longer eligible based on patient's age to complete this topic [id number] 09:09:32 [facility]Yqvvggw9894-46-60 15:03:28* [facility] CenterVpyhyej1915-29-33 15:03:28* Anjum Gipson MD - 09/21/2024 2:00 PM CASTING COORDINATOR History of Present Illness Memory Loss Stable, no side effects on the Exelon. More alert, less sleepy. No rash on the Exelon patch. No new problems Allergies as of 09/21/2024 - Reviewed 09/21/2024 Allergen Reaction Noted Codeine Hives and Unknown 04/07/2022 Morphine Hives and Unknown 04/07/2022 has a current medication list which includes the following prescription(s): furosemide, lisinopril-hydrochlorothiazide, rivastigmine, and memantine. Vitals:09/21/24 1429 BP: 175/79 Pulse: 60 Resp: 16 Temp: 36.4 ?C (97.5 ?F) SpO2: 98% Neurological Exam Mental Status Awake and alert. Speech is normal. Cranial NervesCN II: Visual acuity is normal. CN III, IV, : Extraocular movements intact bilaterally. Pupils equal round and reactive to light bilaterally. CN VII: Full and symmetric facial movement. CN XII: Tongue midline without atrophy or fasciculations. MotorStrength is 5/5 throughout all four extremities. SensoryLight touch is normal in upper and lower extremities. Temperature is normal in upper and lower extremities. Vibration is normal in upper and lower extremities. ReflexesDeep tendon reflexes: Symmetric. GaitCasual gait is normal including stance, stride, and arm swing. No results found for this or any previous visit. No MRI head results found for the past 12 months Assessment & PlanDiagnoses and all orders for this visit: Moderate dementia, unspecified dementia type, unspecified whether behavioral, psychotic, or mood disturbance or anxiety (HCC) Stable, continue present medications. I am the continuing focal point for needed health care services and medicalcare services that are part of ongoing care related to this patient's single, serious condition or complex condition. ING COORDINATOR [facility] CenterRpavqti0039-54-50 15:03:28 [facility]Qkblixl0311-92-96 15:03:28 Diagnosis Moderate dementia, unspecifi ed dementia type, unspecified whether behavioral, psychotic, or mood disturbance or anxiety (HCC) - Primary [facility] HospitalUgwclch9768-73-72 15:03:28 [facility] HospitalCsvqefj2138-81-10 13:07:54Upcoming Encounters Health Maintenance Due Date Last Done Comments Bone Density Scan 1948 CT Colonography 1948 Colonoscopy 1948 Colorectal Cancer Screening 1948 FIT-DNA 1948 FIT 1948 FOBT 1948 Lipid Panel 1948 Medicare Annual Wellness (AWV) 1948 Sigmoidoscopy 1948 DTaP/Tdap/Td Vaccines (1 - Tdap) 1967 Zoster Vaccines (1 of 2) 1998 Respiratory Syncytial Virus (RSV) or >=60 (1 - 1-dose 60+ series) 2008 Pneumococcal Vaccine: 65+ Ye ars (1 of 1 - PCV) 2013 Influenza Vaccine (#1) 2024 HIB Vaccines Aged Out No longer eligi ble based on patient's age to complete this topic HPV Vaccines Aged Out No longer eligi ble based on patient's age to complete this topic Hepatitis A Vaccines Aged Out No long er eligible based on patient's age to complete this topic Hepatitis B Vaccines Aged Out No long er eligible based on patient's age to complete this topic IPV Vaccines Aged Out No longer eligi ble based on patient's age to complete this topic Meningococcal Vaccine Aged Out No lion gudelia eligible based on patient's age to complete this topic Rotavirus Vaccines Aged Out No longer eligible based on patient's age to complete this topic [id number] 13:07:54 [facility] HospitalTtrjrew1638-09-12 14:25:56* [facility] HospitalPpthkvk8230-25-11 14:25:56* Anjum Gipson MD - 07/28/2024 1:15 PM CDT History of Present Illness HPI Thinks the combination of medications is making her sleepy. Needs a letter for a community based program so did that today as well. Stopped the Razadyne sleepiness improved. Will start Exelon patch today. Allergies as of 07/28/2024 - Reviewed 07/28/2024 Allergen Reaction Noted Codeine Hives and Unknown 04/07/2022 Morphine Hives and Unknown 04/07/2022 has a current medication list which includes the following prescription(s): exelon, furosemide, lisinopril-hydrochlorothiazide, and memantine. Vitals:07/28/24 1327 BP: 146/77 Pulse: 76 Resp: 16 Temp: 37.4 ?C (99.3 ?F) SpO2: 97% Neurological Exam Mental Status Awake and alert. Speech is normal. Cranial NervesCN II: Visual acuity is normal. CN III, IV, : Extraocular movements intact bilaterally. Pupils equal round and reactive to light bilaterally. CN VII: Full and symmetric facial movement. CN XII: Tongue midline without atrophy or fasciculations. MotorStrength is 5/5 throughout all four extremities. SensoryLight touch is normal in upper and lower extremities. Temperature is normal in upper and lower extremities. Vibration is normal in upper and lower extremities. ReflexesDeep tendon reflexes: Symmetric. GaitCasual gait is normal including stance, stride, and arm swing. No results found for this or any previous visit. No MRI head results found for the past 12 months Assessment & PlanDiagnoses and all orders for this visit: Moderate dementia, unspecified dementia type, unspecified whether behavioral, psychotic, or mood disturbance or anxiety (HCC) Other orders - Exelon 4.6 MG/24HR; Place 1 patch over 24 hours on the skin 1 time each day. Stop Razadyne, start Exelon patch 4.6 mg. Risks, benefits, side effects reviewed with patient. Time: 35 minutes [place] [id number] 14:25:56Upcoming Encounters Health Maintenance Due Date Last Done Comments Bone Density Scan 1948 CT Colonography 1948 Colonoscopy 1948 Colorectal Cancer Screening 1948 FIT-DNA 1948 FIT 1948 FOBT 1948 Lipid Panel 1948 Medicare Annual Wellness (AWV) 1948 Sigmoidoscopy 1948 DTaP/Tdap/Td Vaccines (1 - Tdap) 1967 Zoster Vaccines (1 of 2) 1998 Respiratory Syncytial Virus (RSV) or >=60 (1 - 1-dose 60+ series) 2008 Pneumococcal Vaccine: 65+ Ye ars (1 of 1 - PCV) 2013 Influenza Vaccine (#1) 2024 HIB Vaccines Aged Out No longer eligi ble based on patient's age to complete this topic HPV Vaccines Aged Out No longer eligi ble based on patient's age to complete this topic Hepatitis A Vaccines Aged Out No long er eligible based on patient's age to complete this topic Hepatitis B Vaccines Aged Out No long er eligible based on patient's age to complete this topic IPV Vaccines Aged Out No longer eligi ble based on patient's age to complete this topic Meningococcal Vaccine Aged Out No lion gudelia eligible based on patient's age to complete this topic Rotavirus Vaccines Aged Out No longer eligible based on patient's age to complete this topic [facility]Ujeoixa3581-72-58 14:25:56 Diagnosis Moderate dementia, unspecifi ed dementia type, unspecified whether behavioral, psychotic, or mood disturbance or anxiety (HCC) - Primary [facility] HospitalQudwods8015-30-80 14:25:56 [facility] HospitalKtblofx6949-85-02 23:55:29Upcoming Encounters Health Maintenance Due Date Last Done Comments CT Colonography 1948 Colonoscopy 1948 Colorectal Cancer Screening 1948 FIT-DNA 1948 FIT 1948 FOBT 1948 Lipid Panel 1948 Medicare Annual Wellness (AWV) 1948 Sigmoidoscopy 1948 DTaP/Tdap/Td Vaccines (1 - Tdap) 1967 Zoster Vaccines (1 of 2) 1998 Respiratory Syncytial Virus (RSV) or >=60 (1 - 1-dose 60+ series) 2008 Pneumococcal Vaccine: 65+ Ye ars (1 of 1 - PCV) 2013 Influenza Vaccine (#1) 2024 HIB Vaccines Aged Out No longer eligi ble based on patient's age to complete this topic HPV Vaccines Aged Out No longer eligi ble based on patient's age to complete this topic Hepatitis A Vaccines Aged Out No long er eligible based on patient's age to complete this topic Hepatitis B Vaccines Aged Out No long er eligible based on patient's age to complete this topic IPV Vaccines Aged Out No longer eligi ble based on patient's age to complete this topic Meningococcal Vaccine Aged Out No lion gudelia eligible based on patient's age to complete this topic Rotavirus Vaccines Aged Out No longer eligible based on patient's age to complete this topic [id number] 23:55:29 [facility] HospitalPihlfdf8889-22-23 09:54:09 Patient's friend, Leyla, recalls speaking to you about a gathering for dementia patients, she isn't sure if patient needed to be refer or if she can just sign up. Family [facility]2024-06-25 18:14:34* [facility] HospitalCogjgwi6066-01-20 18:14:34* Anjum Gipson MD - 04/27/2024 1:00 PM CDT Memory Loss Patient reports onset of memory loss was more than 1 year ago. Onset quality is gradual. Symptoms associated with memory loss include changes in short-term memory and repetitive questions. The family monitors medication usage. Patient lives in a/an house. Brain MRI demonstrates atrophy frontal, parietal and posterior cingulate preferentially although still within normal, concerning for Alzheimer's. Recommended patient not drive. Does not require 24-hour supervision at this juncture. Allergies as of 04/27/2024 - Reviewed 04/27/2024 Allergen Reaction Noted Codeine Hives 04/07/2022 Morphine Hives 04/07/2022 has a current medication list which includes the following prescription(s): furosemide, lisinopril-hydrochlorothiazide, memantine, and galantamine. Vitals:04/27/24 1322 BP: 139/76 Pulse: 55 Resp: 16 Temp: 36.7 ?C (98.1 ?F) SpO2: 97% Neurological Exam Mental Status Awake and alert. Visuospatial: Clock drawing 2/4. Speech is normal. Cranial NervesCN II: Visual acuity is normal. CN III, IV, : Extraocular movements intact bilaterally. Pupils equal round and reactive to light bilaterally. CN VII: Full and symmetric facial movement. CN XII: Tongue midline without atrophy or fasciculations. MotorStrength is 5/5 throughout all four extremities. SensoryLight touch is normal in upper and lower extremities. Temperature is normal in upper and lower extremities. Vibration is normal in upper and lower extremities. ReflexesDeep tendon reflexes: Symmetric. GaitCasual gait is normal including stance, stride, and arm swing. No results found for this or any previous visit. Assessment & PlanModerate dementia, unspecified dementia type, unspecified whether behavioral, psychotic, or mood disturbance or anxiety ([facility]) Orders:galantamine (Razadyne) 4 MG tablet; Take 1 tablet by mouth in the morning and 1 tablet in the evening. Add Razadyne 4 mg bid. Risks, benefits, side effects reviewed with patient. Recommended against driving RTC 2-3 mo Time: 35 minutes [facility] HospitalKmniaxi9864-65-08 18:14:34Upcoming Encounters Health Maintenance Due Date Last Done Comments CT Colonography 1948 Colonoscopy 1948 Colorectal Cancer Screening 1948 FIT-DNA 1948 FIT 1948 FOBT 1948 Lipid Panel 1948 Medicare Annual Wellness (AWV) 1948 Sigmoidoscopy 1948 DTaP/Tdap/Td Vaccines (1 - Tdap) 1967 Zoster Vaccines (1 of 2) 1998 Respiratory Syncytial Virus (RSV) or >=60 (1 - 1-dose 60+ series) 2008 Pneumococcal Vaccine: 65+ Ye ars (1 of 1 - PCV) 2013 Influenza Vaccine (Season Ended) 2024 HIB Vaccines Aged Out No longer eligi ble based on patient's age to complete this topic HPV Vaccines Aged Out No longer eligi ble based on patient's age to complete this topic Hepatitis A Vaccines Aged Out No long er eligible based on patient's age to complete this topic Hepatitis B Vaccines Aged Out No long er eligible based on patient's age to complete this topic IPV Vaccines Aged Out No longer eligi ble based on patient's age to complete this topic Meningococcal Vaccine Aged Out No lion gudelia eligible based on patient's age to complete this topic Rotavirus Vaccines Aged Out No longer eligible based on patient's age to complete this topic [place] [id number] 18:14:34 Diagnosis Moderate dementia, unspecifi ed dementia type, unspecified whether behavioral, psychotic, or mood disturbance or anxiety (HCC) [id number]:14[facility] [place] [id number] 01:50:33 Pt given printed and verbal discharge instructions regarding dysuria, encouraged hydration, Prescriptions provided Discussed ibuprofen and to take with food to avoid GI distress. Discussed antibiotic therapy and to take until all completed unless adverse reaction occurs - if occurs, discontinue medication and follow up with pcp/seek medical attention Pt verbalized understanding of instructions, pt awake alert oriented, resp reg unlabored, skin w/d, color appropriate for race, moves all ext well,pt encouraged to follow up with pcp. Advised to seek medical attention for new/prolonged/worsening of symptoms. Awake, alert oriented, resp reg unlabored, skin w/d, pt leaving amb with steady gait, in no apparent distress. ING COORDINATOR [id number] 22:07:01 Pt given urine cup and urine collection had and placed in the lobby, pt advice to notify nurse with any other concerns or if symptoms worsen. [place] [id number] 22:01:40 Burning with urination X 2 days and lower abd pain [id number] 21:55:00 [facility] Emergency Department Note Patient Name: Demi Vee Date of : 1950 72 year old female Treatment Room: Room/bed info not found Primary Care Physician: Calvin Torres Patient Escorted by: Family [5] Mode of Arrival: Personal means [1] EMS Treatment Prior to ED Arrival: UNIVERSITY RELATIONS DIRECTOR treatment: None Travel and Exposure Screening: Symptoms Does patient have any of these symptoms?: (not recorded) Exposure Screening Has patient had contact with someone with a communicable disease in the last month?: (not recorded) Diseases exposed to:: (not recorded) Is Patient ?: (not recorded) Exposure Date: (not recorded) Chief Complaint: Chief Complaint Patient presents with Urinary Problem History of Present Illness: The patient presents from home for eval for dysuria x 2 days. No abd pain. No n/v. No fever/chills. No meds for her sx. Here for eval. Past Medical History/Immunizations: History reviewed. No pertinent past medical history. Allergies: Allergies Allergen Reactions Codeine Unknown - See comments Morphine Unknown - See comments Past Social History: Substance & Sexual Activity No substance use or sexual activity history on file. Past Surgical History: History reviewed. No pertinent surgical history. Review of Systems: Review of Systems Constitutional: Negative for chills and fever. Respiratory: Negative for cough and shortness of breath. Cardiovascular: Negative for chest pain. Gastrointestinal: Negative for abdominal pain and vomiting. Genitourinary: Positive for dysuria. Musculoskeletal: Negative for arthralgias, neck pain and neck stiffness. Skin: Negative for wound. Neurological: Negative for dizziness. Psychiatric/Behavioral: Negative for agitation. Endocrine: Negative for goiter. Physical Exam: ED Triage Vitals [12/09/23 2202] Weight 66.9 kg (147 lb 6.4 oz) Actual or estimated Height 1.676 m (5' 6") BP (!) 176/90 Pulse 77 Resp 18 Temp 36.2 ?C (97.2 ?F) Temp source Oral SpO2 100 % Measured on Room air Physical Exam Vitals and nursing note reviewed. Constitutional: Appearance: Normal appearance. HENT: Head: Normocephalic and atraumatic. Cardiovascular: Rate and Rhythm: Normal rate and regular rhythm. Pulses: Normal pulses. Pulmonary: Effort: Pulmonary effort is normal. No respiratory distress. Abdominal: General: There is no distension. Palpations: Abdomen is soft. There is no mass. Tenderness: There is no abdominal tenderness. There is no guarding. Hernia: No hernia is present. Musculoskeletal: General: Normal range of motion. Cervical back: Neck supple. Skin: General: Skin is warm and dry. Neurological: Mental Status: She is alert. Radiology: No orders to display Lab Results: Lab Results URINALYSIS - Abnormal Result Value Ref Range APPEARANCE Clear Clear COLOR Yellow Yellow PH 7.0 4.8 - 8.0 SP GRAVITY 1.004 1.003 - 1.030 GLU U QUAL Normal Normal BLOOD Negative Negative KETONES Negative Negative PROTEIN Negative Negative UROBILIN 4.0 mg/dL (*) Normal BILIRUBIN Negative Negative NITRITE Negative Negative LEUK KELLEY 25/uL (*) Negative RBC/HPF 0 0 - 3 HPF WBC/HPF 2 0 - 5 HPF BACTERIA Negative Negative MUCOUS Slight (*) Negative LPF SQ EPITH 1 HPF EKG: If EKG completed, see Procedure Note. Orders and Treatments: Orders Placed This Encounter Procedures URINALYSIS Orders Placed This Encounter Medications sulfamethoxazole-trimethoprim (BACTRIM DS) 800-160 mg per tablet 1 tablet sulfamethoxazole-trimethoprim 800-160 mg per tablet First Provider Eval: ED Events Date/Time Event User Comments 12/09/232157 Medical Screening Begins AIDE DIOR DO -- 12/09/232157 First Provider Evaluation AIDE DIOR DO -- ED COURSE Diagnosis/Impression as of 12/10/23 0105 Dysuria Procedures: Procedures MDM: Medical Decision Making The patient presents from home for eval for dysuria x 2 days. No abd pain. No n/v. No fever/chills. No meds for her sx. VSS here in the EC. Abdomen is soft and not tender. Will check UA. Anticipate dc home later. 0104 - UA shows infection. She was given a dose of antibiotic here in the EC. Will dc home in stable condition with rx for antibiotic. Recommend pcp f/u in one week. Problems Addressed: Dysuria: acute illness or injury Amount and/or Complexity of Data Reviewed Labs: ordered. Decision-making details documented in ED Course. Risk Prescription drug management. Flowsheet Documentation: Scoring Tools: No data recorded Disposition/Condition: ED Disposition ED Disposition Disch - Home Condition Stable Comment -- Discharge Medications: Patient's Medications START taking these medications SULFAMETHOXAZOLE-TRIMETHOPRIM 800-160 MG PER TABLET Take 1 tablet by mouth every 12 (twelve) hours for 5 days. CONTINUE taking these medications which have NOT CHANGED CEFDINIR 300 MG CAPSULE Take 1 capsule by mouth in the morning and 1 capsule in the evening. FUROSEMIDE 20 MG TABLET START taking Modified Medications as Prescribed No medications on file STOP taking these medications No medications on file Follow-up: Electronically signed by: Aide Dior DO 12/10/23 0105 [facility]
[2025-06-09 17:20] LABS: Absolute Lymphocytes (CBC) 1.9 K/uL (0.7-4.9); Hematocrit 30.1 % (36.0-45.0); Hemoglobin 10.7 g/dL (12.0-15.0); MCH 31.8 pg (27.0-35.0); MCHC 35.6 g/dL (32.0-36.0); MCV 89.4 fL (80-100); MPV 9.2 fL (7.6-11.3); Nucleated RBC Absolute Count 0.0 (0-0); Nucleated Red Blood Cells % 0.0 % (0-0); RBC Red Blood Cell Count 3.37 M/uL (3.86-4.86); White Blood Count 8.80 thou/uL (4.3-10.9)
[2025-06-09 17:35] LABS: PT Prothrombin Time 11.9 SECONDS (10-13.0); Protime INR 1.05
[2025-06-09 17:57] LABS: ALT/SGPT 15.0 U/L (13-56); AST/SGOT 12.0 U/L (15-37); Albumin 3.9 g/dL (3.4-5.0); Albumin/Globulin Ratio 1.2 (1.1-1.8); Alkaline Phosphatase 73.0 U/L (45-117); Anion Gap 11.7 mEq/L (5.0-15.0); BUN Blood Urea Nitrogen 51.0 mg/dL (7-18); Bilirubin Indirect, Calculated 0.6 mg/dL (0.2-0.8); Globulin 3.3 g/dL (2.3-3.5); Glucose Level 109.0 mg/dL (74-106); Magnesium 2.5 mg/dL (1.6-2.4); NT PRO-BNP 372.0 pg/mL (<450); Potassium 2.7 mEq/L (3.5-5.1); Troponin High Sensitivity 17.3 pg/mL (<58.9)
--- NOTE | 2025-06-09 18:06 | RAD REPORT ---
EXAMINATION: ONE VIEW CHEST XR CLINICAL INDICATION: Female, 74 years old.,CHEST PAIN TECHNIQUE: Frontal chest projection is submitted. Examination is limited by patient positioning and t echnique. COMPARISON: 03/28/2022 FINDINGS: The lungs are well inflated and hyperlucent but overall clear. Small left midlung calcified granuloma is stable in appearance. No pneumothorax or sizable effusion. The heart is normal in size. Mediastinal contours are unremarkable. IMPRESSION: No acute intrathoracic abnormalities.
--- NOTE | 2025-06-09 18:13 | RAD REPORT ---
EXAM: CT Head Brain Wo Cont HISTORY: dizzy COMPARISON: None TECHNIQUE: Multiple contiguous axial images were obtained for a CT of the brain without contrast. Sag ittal and coronal reformats were performed. One or more of the following dose reduction techniques were used: Automated exposure control, adjus tment of the mA and kV according to patient size, and iterative reconstruction. Unless otherwise specified, incidental findings do not require dedicated imaging follow-up. FINDINGS: No evidence of hydrocephalus, intracranial hemorrhage, or extra-axial fluid collection. Mild brain atrophy with mild periventricular and deep white matter chronic microvascular ischemic ch anges present. The calvarium is intact. The visualized paranasal sinuses and mastoid air cells are essentially clear . IMPRESSION: No evidence of acute intracranial abnormality.
--- NOTE | 2025-06-09 18:19 | EDPHYS ---
Physician Documentation [facility] Name: Mariana Lomas Age: 74 yrs Sex: Female : 1950 Arrival Date: 06/09/2025 Time: 16:12 Bed 6 Private MD: ED Physician Jassi Sanchez HPI: 06/09 17:16 This 74 yrs old Female presents to ER via Wheelchair with complaints of Dizziness, sp3 lethargic, Chest Pain. 17:16 74-year-old female with history of dementia, hyperlipidemia, hypertension presents to sp3 the ED from [facility] as a new resident for chest pain, as well as a mechanical fall she sustained yesterday striking her head. Patient has family who has medical and legal power of performance analyst. Due to dementia, history, physical and ROS limited.. Historical: - Allergies: 16:50 Morphine; me1 - PMHx: 16:50 Dementia; Hypercholesterolemia; me1 - PSHx: 16:50 Total abdominal hysterectomy; Tonsillectomy; Appendectomy; back surgery; me1 - Immunization history:: Adult Immunizations up to date. - Infectious Disease History:: Denies. - Social history:: Smoking status: Patient/guardian denies using tobacco, but has a distant history of tobacco abuse. ROS: 17:17 Unable to obtain ROS due to baseline dementia, sp3 Exam: 17:17 Constitutional: This is a well developed, well nourished patient who is awake, alert, sp3 and in no acute distress. Head/Face: Normocephalic, atraumatic. Eyes: Pupils equal round and reactive to light, extra-ocular motions intact. Lids and lashes normal. Conjunctiva and sclera are non-icteric and not injected. Cornea within normal limits. Periorbital areas with no swelling, redness, or edema. ENT: Nares patent. No nasal discharge, no septal abnormalities noted. External auditory canals are clear. Oropharynx with no redness, swelling, or masses, exudates, or evidence of obstruction, uvula midline. Mucous membranes moist. Neck: Trachea midline, no thyromegaly or masses palpated, and no cervical lymphadenopathy. Supple, full range of motion without nuchal rigidity, or vertebral point tenderness. No Meningismus. Chest/axilla: Normal chest wall appearance and motion. Nontender with no deformity. No lesions are appreciated. Cardiovascular: Regular rate and rhythm with a normal S1 and S2. No gallops, murmurs, or rubs. Normal PMI, no JVD. No pulse deficits. Respiratory: Lungs have equal breath sounds bilaterally, clear to auscultation and percussion. No rales, rhonchi or wheezes noted. No increased work of breathing, no retractions or nasal flaring. Abdomen/GI: Soft, non-tender, with normal bowel sounds. No distension or tympany. No guarding or rebound. No evidence of tenderness throughout. Back: No spinal tenderness. No costovertebral tenderness. Full range of motion. Skin: Warm, dry with normal turgor. Normal color with no rashes, no lesions, and no evidence of cellulitis. MS/ Extremity: Pulses equal, no cyanosis. Neurovascular intact. Full, normal range of motion. Psych: Awake, alert, with orientation to person, place and time. Behavior, mood, and affect are within normal limits. 17:17 Neuro: No focal deficits. Dementia in place with loss of memory and some confabulation., 17:17 ECG was reviewed by the Attending Physician. EKG demonstrates normal sinus rhythm at 67 sp3 bpm with leftward axis, normal intervals, PVCs nonspecific diffuse ST/T changes without evidence of acute ischemia. Vital Signs: 16:46 BP 94 / 53; Pulse 73; Resp 18; Temp 98.4; Pulse Ox 100% ; Weight 63.5 kg; Height 5 ft. me1 7 in. ; Pain 5/10; 17:38 BP 105 / 67; Pulse 67; Resp 14 S; Pulse Ox 99% on R/A; Pain 0/10; ar8 18:54 BP 111 / 61; Pulse 70; Resp 16; Pulse Ox 100% on R/A; ph 20:18 BP 95 / 53; Pulse 67; Resp 16; Pulse Ox 100% on R/A; km10 16:46 Body Mass Index 21.93 (63.50 kg, 170.18 cm) me1 16:46 Pain Scale: Adult me1 17:38 Pain Scale: Adult ar8 MDM: 16:48 Medical Screening Exam initiated sp3 17:18 Data reviewed: vital signs, nurses notes, lab test result(s), EKG, radiologic studies. sp3 ED course: 74-year-old female with PMH above occluding dementia presents to the ED with chest pain now resolved as well as head injury. Differential diagnosis includes acute coronary syndrome, GERD, other intrathoracic process, musculoskeletal pain, injury from fall, as well as intracranial pathology due to her head from the fall. We will obtain CT scan of the head, chest x-ray, EKG and general labs. Probable admission for 23-hour observation and cardiology consultation as needed.. 06/09 16:48 Order name: Basic Metabolic Panel; Complete Time: 17:58 sp3 06/09 16:48 Order name: CBC with Diff; Complete Time: 17:58 sp3 06/09 16:48 Order name: LFT's; Complete Time: 17:58 sp3 06/09 16:48 Order name: Magnesium; Complete Time: 17:58 sp3 06/09 16:48 Order name: NT PRO-BNP; Complete Time: 17:58 sp3 06/09 16:48 Order name: PT-INR; Complete Time: 17:58 sp3 06/09 16:48 Order name: Troponin HS; Complete Time: 17:58 sp3 06/09 21:04 Order name: UA W/Microscopic EDMS 06/09 21:04 Order name: UR CREAT EDMS 06/09 21:04 Order name: UR SODIUM EDMS 06/09 21:19 Order name: CBC with Automated Diff EDMS 06/09 21:19 Order name: Thyroid Stimulating Hormone EDMS 06/09 21:19 Order name: Comprehensive Metabolic Panel EDMS 06/09 21:19 Order name: Comprehensive Metabolic Panel EDMS 06/09 21:19 Order name: Lipid Profile EDMS 06/09 21:19 Order name: Lipid Profile EDMS 06/09 21:19 Order name: Troponin High Sensitivity EDMS 06/09 21:19 Order name: Troponin High Sensitivity EDMS 06/09 16:48 Order name: XRAY Chest (1 view); Complete Time: 18:14 sp3 06/09 16:48 Order name: CT Head Brain wo Cont; Complete Time: 18:14 sp3 06/09 21:04 Order name: Renal Ultrasound-Complete EDMS 06/09 21:04 Order name: CONS Physician Consult EDMS 06/09 16:48 Order name: Cardiac monitoring; Complete Time: 16:58 sp3 06/09 16:48 Order name: EKG - Nurse/Tech; Complete Time: 16:58 sp3 06/09 16:48 Order name: IV Saline Lock; Complete Time: 17:06 sp3 06/09 16:48 Order name: Labs collected and sent; Complete Time: 17:06 sp3 06/09 16:48 Order name: O2 Per Protocol; Complete Time: 16:58 sp3 06/09 16:48 Order name: O2 Sat Monitoring; Complete Time: 16:58 sp3 Administered Medications: No medications were administered Disposition Summary: 06/09/25 18:19 Hospitalization Ordered Notes: Hospitalization Status: Observation sp3 Provider: Antelmo Duffy sp3 Location: Telemetry/MedSurg (observation) sp3 Condition: Stable sp3 Problem: an acute exacerbation sp3 Symptoms: have worsened sp3 Bed/Room Type: Standard sp3 Room Assignment: 403(06/09/25 21:24) rv1 Diagnosis - Chest pain, CKD, closed head injury, dementia sp3 Forms: - Medication Reconciliation Form sp3 - SBAR form sp3 - Leadership Thank You Letter sp3 Signatures: Dispatcher [employer] EDJassi Villarreal MD MD sp3 Xochitl Louie rv1 Micki Bojorquez RN RN me1 Corrections: (The following items were deleted from the chart) 16:48 16:48 BASIC METABOLIC PANEL+C.LAB.BRZ ordered. EDMS EDMS 16:48 16:48 CBC+H.LAB.BRZ ordered. EDMS EDMS 16:48 16:48 HEPATIC FUNCTION+C.LAB.BRZ ordered. EDMS EDMS 16:48 16:48 MAGNESIUM+C.LAB.BRZ ordered. EDMS EDMS 16:48 16:48 PROBNP+C.LAB.BRZ ordered. EDMS EDMS 16:48 16:48 PROTIME (+INR)+COAG.LAB.BRZ ordered. EDMS EDMS 16:48 16:48 Troponin High Sensitivity+C.LAB.BRZ ordered. EDMS EDMS 16:49 16:49 Chest Single View+RAD.RAD.BRZ ordered. EDMS EDMS 16:49 16:49 Head Brain Wo Cont+CT.RAD.BRZ ordered. EDMS EDMS 21:24 18:19 sp3 rv1
--- NOTE | 2025-06-09 18:19 | ER ---
Nurse's Notes [facility] Name: Mariana Lomas Age: 74 yrs Sex: Female : 1950 Arrival Date: 06/09/2025 Time: 16:12 Bed 6 Private MD: Diagnosis: Chest pain, CKD, closed head injury, dementia Presentation: 06/09 16:46 Chief complaint: Patient states: sudden onset of L sided chest pain "pressure" 5/10 , me1 radiates to L upper back and left arm w/SOB, dizziness and generalized weakness. Seen recently at pcp's for uti. Reports a fall last night but doesn't remember what caused her to fall. No blood thinners. Coronavirus screen: Vaccine status: Patient reports receiving the 2nd dose of the covid vaccine. Ebola Screen: No symptoms or risks identified at this time. Initial Sepsis Screen: Does the patient meet any 2 criteria? No. Patient's initial sepsis screen is negative. Does the patient have a suspected source of infection? No. Patient's initial sepsis screen is negative. Risk Assessment: Do you want to hurt yourself or someone else? Patient reports no desire to harm self or others. Onset of symptoms was June 09, 2025 at 16:30. 16:46 Method Of Arrival: Wheelchair me1 16:46 Acuity: AZALIA 3 me1 Historical: - Allergies: 16:50 Morphine; me1 - PMHx: 16:50 Dementia; Hypercholesterolemia; me1 - PSHx: 16:50 Total abdominal hysterectomy; Tonsillectomy; Appendectomy; back surgery; me1 - Immunization history:: Adult Immunizations up to date. - Infectious Disease History:: Denies. - Social history:: Smoking status: Patient/guardian denies using tobacco, but has a distant history of tobacco abuse. Screenin:54 [facility] ED Fall Risk Assessment (Adult) History of falling in the last 3 months, ph including since admission Yes- single mechanical fall (1 pt) Confusion or Disorientation No (0 pts) Intoxicated or Sedated No (0 pts) Impaired Gait No (0 pts) Mobility Assist Device Used No (0 pt) Altered Elimination No (0 pt) Score/Fall Risk Level 0 - 2 = Low Risk Oriented to surroundings, Maintained a safe environment, Hourly rounding (assess needs \\T\\ fall precautionary measures) done. Abuse screen: Denies threats or abuse. Denies injuries from another. Nutritional screening: No deficits noted. Tuberculosis screening: No symptoms or risk factors identified. Assessment: 17:04 Reassessment: Patient appears in no apparent distress at this time. Patient and/or db family updated on plan of care and expected duration. Pain level reassessed. Patient is alert, oriented x 3, equal unlabored respirations, skin warm/dry/pink. General: Appears in no apparent distress. comfortable, Behavior is cooperative, anxious. Pain: Complains of pain in chest Pain radiates to left breast and left arm Pain began gradually. Neuro: Level of Consciousness is awake, alert, obeys commands, Oriented to person, place, time. Cardiovascular: Reports chest pain. Respiratory: Airway is patent Respiratory effort is even, unlabored, Respiratory pattern is regular, symmetrical. 19:30 Reassessment: Patient appears in no apparent distress at this time. Patient and/or km10 family updated on plan of care and expected duration. Pain level reassessed. Pain: Denies pain. Vital Signs: 16:46 BP 94 / 53; Pulse 73; Resp 18; Temp 98.4; Pulse Ox 100% ; Weight 63.5 kg; Height 5 ft. me1 7 in. ; Pain 5/10; 17:38 BP 105 / 67; Pulse 67; Resp 14 S; Pulse Ox 99% on R/A; Pain 0/10; ar8 18:54 BP 111 / 61; Pulse 70; Resp 16; Pulse Ox 100% on R/A; ph 20:18 BP 95 / 53; Pulse 67; Resp 16; Pulse Ox 100% on R/A; km10 16:46 Body Mass Index 21.93 (63.50 kg, 170.18 cm) me1 16:46 Pain Scale: Adult me1 17:38 Pain Scale: Adult ar8 ED Course: 16:20 Patient arrived in ED. im 16:21 Jassi Sanchez MD is Attending Physician. sp3 16:49 Triage completed. me1 16:50 Arm band placed on Patient placed in waiting room. me1 17:03 Julianna Ram, RN is Primary Nurse. db 17:04 EKG done. db 17:06 Basic Metabolic Panel Sent. ph 17:07 CBC with Diff Sent. ph 17:07 LFT's Sent. ph 17:07 Magnesium Sent. ph 17:07 NT PRO-BNP Sent. ph 17:07 PT-INR Sent. ph 17:07 Troponin HS Sent. ph 17:07 Initial lab(s) drawn, by me, sent to lab. Inserted saline lock: 22 gauge in right ph antecubital area, using aseptic technique. Blood collected. Flushed with 10 mL NS. Patient maintains SpO2 saturation greater than 95% on room air. 17:16 CT Head Brain wo Cont In Process Unspecified. EDMS 17:42 XRAY Chest (1 view) In Process Unspecified. EDMS 18:18 Antelmo Duffy MD is Hospitalizing Provider. sp3 18:55 Patient has correct armband on for positive identification. wax pattern assembler on. Pulse ph ox on. NIBP on. Door closed. Noise minimized. Warm blanket given. 18:55 No provider procedures requiring assistance completed. Patient admitted, IV remains in ph place. 19:03 Primary Nurse role handed off by Julianna Ram RN km10 19:03 Sunni Judge, RN is Primary Nurse. km10 Administered Medications: No medications were administered Medication: 18:55 VIS not applicable for this client. ph Outcome: 18:19 Decision to Hospitalize by Provider. sp3 23:21 Admitted to Tele accompanied by ting, via amy cunningham 23:21 Condition: stable 23:21 Discharge instructions given to patient, family, Instructed on the need for admit, Demonstrated understanding of instructions, 23:22 Patient left the ED. km10 Signatures: Dispatcher [employer] EDCT Anni Castellano RN RN Jassi Sanchez MD MD sp3 Julianna Ram RN RN Cherrie Hansen Micki Bojorquez RN RN [facility] Sunni Judge RN RN km10 Jose Elias Molina RN RN ar8 Corrections: (The following items were deleted from the chart) 17:00 16:46 Chief complaint: Patient states: sudden onset of L sided chest pain "pressure" me1 5/10 , radiates to L upper back and left arm w/SOB, dizziness and generalized weakness. Seen recently at pcp's for uti me1 18:54 18:52 BP 94 / 56; Pulse 73bpm; Resp 20bpm; Pulse Ox 99% RA; ph ph 22:21 20:18 BP 95 / 3; Pulse 67bpm; Resp 16bpm; Pulse Ox 100% RA; km10 km10
--- NOTE | 2025-06-09 21:11 | P.HP ---
Certification for Inpatient With expected LOS: >2 Midnights Patient will require the following post-hospital care: None Practitioner: I am a practitioner with admitting privileges, knowledge of patient current condition, hospital course, and medical plan of care. Services: Services provided to patient in accordance with Admission requirements found in Title 42 Section 412.3 of the Code of Federal Regulations Patient History Date of Service: 06/09/25 Reason for admission: Weakness and chest pain History of Present Illness: 74-year-old female with past medical history of HTN, diastolic CHF, follow-up with Dr. Leon, no prior history of CAD, Alzheimer's dementia, recently accepted at assisted living facility as scheduled to move next week; but currently lives alone, developed before yesterday while baking biscuits. She said she has turned around and felt a bit lightheaded sliding to the floor she is unsure if she hit her head although nephew noticed a bruising on her left cheek today. She states she felt dizziness after the episode but was able to get up and continue her day. She has gotten up this morning and going with a nephew to check out the assisted living facility and reportedly was weak and may be drowsy all day. She started developing dizziness as well as feeling of chest pain but no palpitation this afternoon and has gone to her primary care ph ysician and was recommended she go to the emergency room. She is unable to describe the chest pain at this time of incident. Although she denies any chest pain now. She denies any headache or dizziness at this time. On arrival in the ED, her blood pressure was 93/52, heart rate stable at 87, afebrile, EKG shows normal sinus rhythm rhythm with occasional PVCs. Laboratory workup showed potassium of 2.7, creatinine of 2.1 up from previous baseline of 0.8. Head CT shows no acute intracranial pathology, chest x-ray shows old granuloma but no acute infiltrate or consolidation. Magnesium was normal at 2.5. Serum WBC was also normal but hemoglobin of 10.7. She has been admitted for acute renal failure, status post fall and atypical chest pain Home medications list reviewed: Yes - Past Medical/Surgical History -: Hypertension -: Diastolic CHF -: Alzheimer's dementia -: HLD Past Surgical History: Reviewed- Non-Contributory - Family History Family History: Reviewed- Non-Contributory - Social History Smoking Status: Former smoker Smoking therapy provided: No Patient receptive to therapy: No Alcohol use: No CD- Drugs: No Caffeine use: No Place of Residence: Home Review of Systems General: Weakness Cardiovascular: Light Headedness Neurological: Weakness Physical Examination - Physical Exam General: Alert, In no apparent distress, Oriented x3, Other (Elderly female, calm, on room air) HEENT: Atraumatic, Normocephalic, PERRLA, Other (Tiny abrasion over left cheek) Neck: Supple, 2+ carotid pulse no bruit, JVD not distended Respiratory: Clear to auscultation bilaterally, Normal air movement Cardiovascular: No edema, Normal pulses, Regular rate/rhythm, Normal S1 S2 Capillary refill: <2 Seconds Gastrointestinal: Normal bowel sounds, Soft and benign, Non-distended, No ascites, No tenderness Musculoskeletal: No clubbing, No swelling, No contractures Integumentary: No breakdown, No significant lesion, No tenderness/swelling Neurological: Normal speech, Normal strength at 5/5 x4 extr, Sensation intact, Cranial nerves 3-12 intact - Studies Laboratory Data (last 24 hrs) 06/09/25 06/09/25 06/09/25 17:05 17:05 17:05 WBC 8.80 Hgb 10.7 L Hct 30.1 L Plt Count 160 PT 11.9 INR 1.05 Sodium 135 L Potassium 2.7 L BUN 51 H Creatinine 2.14 H Glucose 109 H Magnesium 2.5 H Total Bilirubin 0.8 AST 12 L ALT 15 Alkaline Phosphatase 73 Assessment and Plan - Problems (Diagnosis) (1) Acute kidney injury Current Visit: Yes Status: Acute (2) Hypokalemia Current Visit: Yes Status: Acute (3) Hypokalemia due to excessive renal loss of potassium Current Visit: Yes Status: Acute (4) Alzheimer's dementia Current Visit: Yes Status: Acute (5) Status post fall Current Visit: Yes Status: Acute (6) Hypotension arterial Current Visit: Yes Status: Acute - Plan Impression Acute kidney injurylikely due to prerenal Severe hypokalemiamay be due to diuretics use Hypotensionwith symptoms History of HTN History of HLD History of Alzheimer's dementia Status post fall Plan We admit patient to inpatient status Acute kidney injurystart gentle IV fluid with LR at KCl Replace potassium Hold lisinopril and Lasix for now Monitor creatinine trend Renal consult in a.m. Asthenia with weaknessstatus post fall Obtain PT and OT Orthostatic hypotension after BP improved Obtain UA to rule out UTI Alzheimer's dementiastable continue rivastigmine Hypokalemiawill repletedue to Lasix use Hypotensionmay be due to volume depletion follow with gentle IV fluid Hold lisinopril Advance directivediscussed with patient and nephew, she wants trial of full code. She states her medical POA is coming Dispositionpossible hospital stay for 24 to 48 hours Total time spent in evaluation discussion with patient greater than 70 minutes - Advance Directives Does patient have a Living Will: No Does patient have a Durable POA for Healthcare: Yes - Code Status/Comfort Care Code Status Assessed: Yes Code Status: Full Code Time Spent Managing Pts Care (In Minutes): 75
[2025-06-09] MEDS ORDERED: MORPHINE 2 MG/ML SYR IV PRN (21:13)
[2025-06-09] MEDS ORDERED: ACETAMINOPHEN 500 MG TAB PO PRN (21:13)
[2025-06-09] MEDS: POTASSIUM 25 MEQ EFFERV TAB PO ONE (21:13)
[2025-06-09] MEDS ORDERED: HYDRALAZINE HCL 20 MG/ML VIAL IV PRN (21:13)
[2025-06-09] MEDS ORDERED: ONDANSETRON 4 MG/2 ML VIAL IV PRN (21:14)
[2025-06-09] MEDS ORDERED: ALBUTEROL 2.5 MG/3 ML NEB SOL NEB PRN (21:15)
[2025-06-09] MEDS: Ringers Lactate 1,000 ML IV SCH (22:00)
--- NOTE | 2025-06-09 22:52 | RAD REPORT ---
EXAMINATION: US RETROPERITONEUM CLINICAL INDICATION: ARF TECHNIQUE: Real-time ultrasonography of the abdomen was performed. COMPARISON: No prior exam. FINDINGS: RIGHT KIDNEY: Right renal length measurement: 9.3 cm. Normal in echogenicity and size. No calculus or solid mass. Mildly prominent right renal pelvis. LEFT KIDNEY: Overshadowing ribs limited evaluation. Left renal length measurement: 9.3 cm. Normal in echogenicity and size. No calculus, solid mass or hydronephrosis. URINARY BLADDER: Not well evaluated given overshadowing bowel gas. ADDITIONAL FINDINGS: None. IMPRESSION: Mildly prominent right renal pelvis, could represent an extrarenal pelvis. No other suspicious abnorm alities. Bladder is not well evaluated given overshadowing bowel gas.
[2025-06-09] MEDS ORDERED: POTASSIUM 25 MEQ EFFERV TAB ONE (23:13)
[2025-06-09] MEDS ORDERED: Ringers Lactate 1,000 ML IV ONE (23:13)
[2025-06-09 23:46] LABS: Absolute Lymphocytes (CBC) 1.7 K/uL (0.7-4.9); Hematocrit 26.3 % (36.0-45.0); Hemoglobin 9.4 g/dL (12.0-15.0); MCH 32.1 pg (27.0-35.0); MCHC 35.9 g/dL (32.0-36.0); MCV 89.2 fL (80-100); MPV 9.4 fL (7.6-11.3); Nucleated RBC Absolute Count 0.0 (0-0); Nucleated Red Blood Cells % 0.0 % (0-0); RBC Red Blood Cell Count 2.95 M/uL (3.86-4.86); White Blood Count 6.00 thou/uL (4.3-10.9)
[2025-06-10 00:02] LABS: Thyroid Stimulating Hormone 1.16 uIU/mL (0.358-3.740); Troponin High Sensitivity 17.6 pg/mL (<58.9)
[2025-06-10 06:17] LABS: Albumin 3.2 g/dL (3.4-5.0); Albumin/Globulin Ratio 1.1 (1.1-1.8); Alkaline Phosphatase 65 U/L (45-117); Anion Gap 7.3 mEq/L (5.0-15.0); BUN Blood Urea Nitrogen 47 mg/dL (7-18); Globulin 2.8 g/dL (2.3-3.5); Glucose Level 96 mg/dL (74-106); HDL Cholesterol 67 mg/dL (40-60); LDL Cholesterol, Calculated 62 mg/dL (<130); LDL Cholesterol,Calc NonReport 62; Potassium 4.3 mEq/L (3.5-5.1)
[2025-06-10 06:22] LABS: ALT/SGPT < 14 U/L (13-56); AST/SGOT < 10 U/L (15-37)
[2025-06-10 08:24] LABS: Sqamous Epithelial <5 /HPF (None Seen); Urine Micro Reflex YN NO BILL MICROSCOPIC
[2025-06-10] MEDS: CEFTRIAXONE 1,000 MG in NA CHLORIDE 0.9% 50 ML IVPB SCH (08:34)
[2025-06-10] MEDS: FAMOTIDINE 20 MG TAB PO SCH (08:34)
[2025-06-10] MEDS: ENOXAPARIN 30 MG/0.3 ML SQ SCH (08:34)
[2025-06-10] MEDS: Ringers Lactate 1,000 ML IV SCH (14:04)
--- NOTE | 2025-06-10 15:44 | P.PN ---
Subjective Date of Service: 06/10/25 Chief Complaint: Weakness and chest pain Patient has no new complaint. Blood pressure readings fluctuate but overall improved. Physical Examination - Vital Signs Temperature: 97.5 F Blood Pressure: 98/62 Pulse: 55 Respirations: 18 Pulse Ox (%): 100 - Studies Laboratory Data (last 24 hrs) 06/09/25 06/09/25 06/09/25 17:05 17:05 17:05 WBC 8.80 Hgb 10.7 L Hct 30.1 L Plt Count 160 PT 11.9 INR 1.05 Sodium 135 L Potassium 2.7 L BUN 51 H Creatinine 2.14 H Glucose 109 H Magnesium 2.5 H Total Bilirubin 0.8 AST 12 L ALT 15 Alkaline Phosphatase 73 Assessment And Plan - Plan Physical examination General: Alert and oriented x 3, NAD, Neck: Supple, no elevated JVD Heart: Heart sounds 1 and 2 normal, regular rhythm, normal rate, no pedal edema Lungs: Clear to auscultation bilaterally, adequate breath sounds bilaterally, no rhonchi or crackles. Abdomen: Soft, nondistended, nontender, normal bowel sounds. Extremities: No tenderness, no deformity Skin: Normal skin turgor, no rash, no nodules or ulcers. Neuro: No focal motor deficit. Normal speech. Psychiatry: Normal mood, no agitation. Diagnosis Acute kidney injurylikely due to prerenal Severe hypokalemiamay be due to diuretics use Hypotensionwith symptoms History of HTN History of HLD History of Alzheimer's dementia Status post fall Plan: Acute kidney injury Hypokalemia Hypokalemia improved. KAREN is improving Continue IV Ringer's lactate. Monitor renal function Lasix and lisinopril on hold. Nephrology input appreciated. Hypotension Syncope Fall Syncope likely related to orthostatic hypotension. Blood pressure readings improved Monitor orthostatic vitals. IV hydration. PT consult History of hypertension Hold antihypertensives. History of asthma dementia Hyperlipidemia Validated and reconcile home medications. DVT prophylaxis: Heparin Advanced directive: Full code
--- NOTE | 2025-06-10 20:23 | CON ---
Date of Consultation: 06/10/2025 Chief Complaint: Chest pain, weakness, near syncope. Reason For Consultation: Acute kidney injury. History Of Present Illness: This is a 74-year-old woman with past medical history of CHF, on Lasix a nd lisinopril; hypertension; coronary artery disease; and progressive dementia. As per patient, she was feeling weak. She tried to bend doing some work at the kitchen and felt dizzy. Son reported fal l incidents recently. The patient has a history of progressively worsening dementia and she was set to move to assisted living in the next few days. Upon presentation to the ER, patient noticed to be hypotensive, creatinine elevated 2.1. The last documented creatinine was 0.7 back in 2021. The sheldon ent denied NSAID intake. Past Medical History: CHF, hypertension, and dementia. Past Surgical History: None documented. Family History: Noncontributory. Review of Systems: Positive for weakness, chest discomfort. Denies nausea, vomiting, diarrhea, or constipation. Physical Examination: Vital Signs: Temperature 97.5, pulse rate 55, blood pressure 98/62. General: Awake and alert. Looks pale and chronically ill. Neck: Supple. No elevated JVD. Heart: Regular rate and rhythm. Normal S1, S2. Chest: Clear to auscultation bilaterally. No rales or wheezes. Abdomen: Soft and nontender. Extremities: No edema. Laboratory Data: Sodium 141, potassium 4.3, BUN 47, creatinine 1.8. White count 6, hemoglobin 9.4. Assessment And Plan: 1. Acute kidney injury. Unknown baseline creatinine, likely due to overdiuresis and ischemic acute t ubular necrosis from hypotension. Continue IV fluids. We will reduce the rate. Renal dose medicati on. Avoid NSAID and contrast. 2. Dizziness, possibly from symptomatic hypotension. Continue IV fluid. Discontinue blood pressure medication. 3. Congestive heart failure, looks dry. Continue to hold diuretic. 4. Progressive dementia. Continue supportive care. Thanks for allowing me to participate in patient's care. Total time spent 75 minutes including docum entation, reviewing labs, and placing orders. AA/MODL Voice ID: [id number] Report ID: [id number]
[2025-06-10] MEDS: MELATONIN 5 MG TABLET PO PRN (20:39)
[2025-06-10] MEDS: HEPARIN 5000 UNIT/ML 1 ML VIAL SQ SCH (20:39)
[2025-06-10 22:26] VITALS: BMI 21.9
[2025-06-11 05:58] LABS: Absolute Lymphocytes (CBC) 1.3 K/uL (0.7-4.9); Hematocrit 24.9 % (36.0-45.0); Hemoglobin 8.9 g/dL (12.0-15.0); MCH 32.5 pg (27.0-35.0); MCHC 35.9 g/dL (32.0-36.0); MCV 90.6 fL (80-100); MPV 8.8 fL (7.6-11.3); Nucleated RBC Absolute Count 0.0 (0-0); Nucleated Red Blood Cells % 0.0 % (0-0); RBC Red Blood Cell Count 2.74 M/uL (3.86-4.86); White Blood Count 4.80 thou/uL (4.3-10.9)
[2025-06-11 06:14] LABS: Anion Gap 7.6 mEq/L (5.0-15.0); BUN Blood Urea Nitrogen 37.0 mg/dL (7-18); Glucose Level 90.0 mg/dL (74-106); Potassium 3.6 mEq/L (3.5-5.1)
[2025-06-11] MEDS ORDERED: ALBUTEROL 2.5 MG/3 ML NEB SOL NEB PRN (10:44)
[2025-06-11] MEDS: PNEUMOCOCCAL VACCINE 0.5 ML IMVAC ONE (11:00)
--- NOTE | 2025-06-11 14:46 | P.PN ---
Subjective Date of Service: 06/11/25 Chief Complaint: Weakness and chest pain Patient has no new complaint. She ambulated with physical therapy using a walker today. Physical Examination - Vital Signs Temperature: 97.6 F Blood Pressure: 137/64 Pulse: 57 Respirations: 16 Pulse Ox (%): 100 Assessment And Plan - Plan Physical examination General: Alert and oriented x 3, NAD, Neck: Supple, no elevated JVD Heart: Heart sounds 1 and 2 normal, regular rhythm, normal rate, no pedal edema Lungs: Clear to auscultation bilaterally, adequate breath sounds bilaterally, no rhonchi or crackles. Abdomen: Soft, nondistended, nontender, normal bowel sounds. Extremities: No tenderness, no deformity Skin: Normal skin turgor, no rash, no nodules or ulcers. Neuro: No focal motor deficit. Normal speech. Psychiatry: Normal mood, no agitation. Diagnosis Acute kidney injurylikely due to prerenal Severe hypokalemiamay be due to diuretics use Hypotensionwith symptoms History of HTN History of HLD History of Alzheimer's dementia Status post fall Plan: Acute kidney injury Hypokalemia Hypokalemia improved. KAREN is improving Continue IV Ringer's lactate. Monitor renal function Lasix and lisinopril on hold. Nephrology input appreciated. Hypotension Syncope Fall Syncope likely related to orthostatic hypotension. Blood pressure readings improved Monitor orthostatic vitals. IV hydration. PT consult History of hypertension Hold antihypertensives. History of asthma dementia Hyperlipidemia Validated and reconcile home medications. 06/11 KAREN significantly improved and almost resolved, serum creatinine down to 1.27. Nephrology to follow Discontinue IV fluid Stable blood pressure Continue to hold Lasix and lisinopril. Continue PT. Anticipating discharge to assisted living on Friday. DVT prophylaxis: Heparin Advanced directive: Full code
[2025-06-12 05:11] VITALS: O2SAT 100
[2025-06-12 05:56] LABS: Absolute Lymphocytes (CBC) 1.8 K/uL (0.7-4.9); Hematocrit 30.5 % (36.0-45.0); Hemoglobin 10.9 g/dL (12.0-15.0); MCH 32.5 pg (27.0-35.0); MCHC 35.9 g/dL (32.0-36.0); MCV 90.6 fL (80-100); MPV 9.0 fL (7.6-11.3); Nucleated RBC Absolute Count 0.0 (0-0); Nucleated Red Blood Cells % 0.1 % (0-0); RBC Red Blood Cell Count 3.36 M/uL (3.86-4.86); White Blood Count 6.90 thou/uL (4.3-10.9)
[2025-06-12 06:17] LABS: Anion Gap 9.2 mEq/L (5.0-15.0); BUN Blood Urea Nitrogen 29.0 mg/dL (7-18); Glucose Level 97.0 mg/dL (74-106); Potassium 4.2 mEq/L (3.5-5.1)
--- NOTE | 2025-06-12 15:08 | P.PN ---
Subjective Date of Service: 06/12/25 Chief Complaint: Weakness and chest pain Patient has no new complaint. No issues overnight. No agitation. Physical Examination - Vital Signs Temperature: 97.8 F Blood Pressure: 138/70 Pulse: 60 Respirations: 16 Pulse Ox (%): 100 Assessment And Plan - Plan Physical examination General: Alert and oriented x 3, NAD, Neck: Supple, no elevated JVD Heart: Heart sounds 1 and 2 normal, regular rhythm, normal rate, no pedal edema Lungs: Clear to auscultation bilaterally, adequate breath sounds bilaterally, no rhonchi or crackles. Abdomen: Soft, nondistended, nontender, normal bowel sounds. Extremities: No tenderness, no deformity Skin: Normal skin turgor, no rash, no nodules or ulcers. Neuro: No focal motor deficit. Normal speech. Psychiatry: Normal mood, no agitation. Diagnosis Acute kidney injurylikely due to prerenal Severe hypokalemiamay be due to diuretics use Hypotensionwith symptoms History of HTN History of HLD History of Alzheimer's dementia Status post fall Plan: Acute kidney injury Hypokalemia Hypokalemia improved. KAREN is improving Continue IV Ringer's lactate. Monitor renal function Lasix and lisinopril on hold. Nephrology input appreciated. Hypotension Syncope Fall Syncope likely related to orthostatic hypotension. Blood pressure readings improved Monitor orthostatic vitals. IV hydration. PT consult History of hypertension Hold antihypertensives. History of asthma dementia Hyperlipidemia Validated and reconcile home medications. 06/11 KAREN significantly improved and almost resolved, serum creatinine down to 1.27. Nephrology to follow Discontinue IV fluid Stable blood pressure Continue to hold Lasix and lisinopril. Continue PT. Anticipating discharge to assisted living on Friday. 06/12 KAREN improved, serum creatinine stable around 1.2 which is probably patient's baseline. Stable blood pressure No new complaint. Nephrology input appreciated. Continue to hold Lasix and lisinopril. Patient plan for discharge to his assisted living facility on Friday. Patient was inquiring about the prospect of new medications for anxiety and dementia. I discussed patient's inquiry with Dr. Coyne who mentioned potential benefit from Leqemba and kisunla. I informed patient's nephew about these medications, to discussed with patient's neurologist Dr. Robertson whether patient is a candidate to try these medications. DVT prophylaxis: Heparin Advanced directive: Full code
[2025-06-13 06:18] LABS: Anion Gap 7.0 mEq/L (5.0-15.0); BUN Blood Urea Nitrogen 23.0 mg/dL (7-18); Glucose Level 92.0 mg/dL (74-106); Potassium 4.0 mEq/L (3.5-5.1)
[2025-06-13 08:26] VITALS: TEMP 97.9
--- NOTE | 2025-06-13 09:01 | P.DS ---
Admission Date: 06/09/25 Discharge Date: 06/13/25 Disposition: ROUTINE DISCHARGE Discharge Condition: FAIR Reason for Admission: Weakness and chest pain Brief History of Present Illness: 74-year-old female with past medical history of HTN, diastolic CHF, follow-up with Dr. Heredia no prior history of CAD, Alzheimer's dementia presented to the emergency department after a fall at home. She reported feeling lightheaded and dizzy prior to the fall, felt dizzy after the fall. On arrival in the ED, her blood pressure was 93/52, heart rate stable at 87, afebrile, EKG shows normal sinus rhythm rhythm with occasional PVCs. Laboratory workup showed potassium of 2.7, creatinine of 2.1 up from previous baseline of 0.8. Head CT shows no acute intracranial pathology, chest x-ray shows old granuloma but no acute infiltrate or consolidation. Magnesium was normal at 2.5. Serum WBC was also normal but hemoglobin of 10.7. She was admitted for further management of acute kidney injury and syncope. Hospital Course: Diagnosis Acute kidney injurylikely due to prerenal Severe hypokalemiamay be due to diuretics use Hypotensionwith symptoms History of HTN History of HLD History of Alzheimer's dementia Status post fall Patient was admitted to the medical floor and the following medical problems addressed: Acute kidney injury Hypokalemia Patient is taking Lasix, lisinopril and hydrochlorothiazide which were held during the hospital stay She was hydrated with IV Ringer's lactate Hypokalemia improved. KAREN resolved. Patient was normotensive during the hospital stay. Lisinopril and hydrochlorothiazide discontinued Patient is advised to take Lasix only on a as needed basis for edema Nephrology evaluated patient and assisted with management. Hypotension Syncope Fall Syncope likely related to orthostatic hypotension. Blood pressure readings improved after IV hydration PT evaluated patient She is ambulating with a walker History of hypertension Patient was normotensive and blood pressure was stable during the hospital stay Home lisinopril and hydrochlorothiazide discontinued given the impaired renal function. History of asthma dementia Hyperlipidemia Continue current medications. Vital Signs/Physical Exam: Temp Pulse Resp BP Pulse Ox 97.9 F 60 16 125/67 98 06/13/25 08:00 06/13/25 08:00 06/13/25 08:00 06/13/25 08:00 06/13/25 08:00 General: Alert, In no apparent distress, Oriented x3 HEENT: Mucous membr. moist/pink, Sclerae nonicteric Neck: Supple, JVD not distended Respiratory: Clear to auscultation bilaterally, Normal air movement Cardiovascular: No edema, Regular rate/rhythm, Normal S1 S2 Gastrointestinal: Normal bowel sounds, Soft and benign, Non-distended, No tenderness Musculoskeletal: No swelling Integumentary: No rashes, No cyanosis Neurological: Normal strength at 5/5 x4 extr Laboratory Data at Discharge: WBC 6.90 thou/uL (4.3-10.9) 06/12/25 05:17 Hgb 10.9 g/dL (12.0-15.0) L D 06/12/25 05:17 Hct 30.5 % (36.0-45.0) L 06/12/25 05:17 Plt Count 154 thou/uL (152-406) D 06/12/25 05:17 PT 11.9 SECONDS (10-13.0) 06/09/25 17:05 INR 1.05 06/09/25 17:05 Sodium 141 mEq/L (136-145) 06/13/25 05:39 Potassium 4.0 mEq/L (3.5-5.1) 06/13/25 05:39 BUN 23 mg/dL (7-18) H 06/13/25 05:39 Creatinine 0.89 mg/dL (0.55-1.02) 06/13/25 05:39 Glucose 92 mg/dL (74-106) 06/13/25 05:39 Magnesium 2.5 mg/dL (1.6-2.4) H 06/09/25 17:05 Total Bilirubin 0.5 mg/dL (0.2-1.0) 06/10/25 05:28 AST < 10 U/L (15-37) L 06/10/25 05:28 ALT < 14 U/L (13-56) 06/10/25 05:28 Alkaline Phosphatase 65 U/L (45-117) 06/10/25 05:28 Triglycerides 36 mg/dL (<150) 06/10/25 05:28 Cholesterol 136 mg/dL (<200) 06/10/25 05:28 HDL Cholesterol 67 mg/dL (40-60) H 06/10/25 05:28 Cholesterol/HDL Ratio 2.03 06/10/25 05:28 Home Medications: Atorvastatin Calcium 40 mg PO DAILY #30 tab 06/13/25 Furosemide 40 mg PO DAILY PRN #30 tab 06/13/25 Memantine HCl [Memantine HCl ER] 28 mg PO DAILY #30 cap 06/13/25 Rivastigmine Patch [Exelon 4.6 mg Patch*] 1 each TD Q24H #30 pat 06/13/25 New Medications: Atorvastatin Calcium 40 mg PO DAILY #30 tab Rivastigmine Patch [Exelon 4.6 mg Patch*] 1 each TD Q24H #30 pat Furosemide 40 mg PO DAILY PRN #30 tab PRN Reason: Leg edema Memantine HCl [Memantine HCl ER] 28 mg PO DAILY #30 cap Diet: AHA Activity: Fall precautions Followup: Lisa Cox MD [Primary Care Provider] - 1-2 Weeks Jordan Robertson MD [ACTIVE - CAN ADMIT] - 1-2 Weeks Time spent managing pt's care (in minutes): 31
[2025-06-13 11:59] VITALS: BP 163/88
--- NOTE | 2025-06-14 02:49 | PN ---
Date of Progress Note: 06/13/2025 Chief Complaint: Acute kidney injury. Subjective: The patient presented to the hospital because of chest pain, weakness, and near syncope episode. She is a 74-year-old woman with past medical history of congestive heart failure, on Lasix and lisinopril. She has also hypertension, coronary artery disease, and progressive dementia. She w as feeling weak and she came to the hospital because of dizziness and presyncopal episode. Recently, she had history of fall. The patient has history of progressively worse dementia, and she was moved to assisted living. Upon presentation to emergency room, she was hypotensive. Creatinine level was elevated up to 2.1. Previous creatinine level back in 2021 was 0.7. She denies nonsteroidal anti-i nflammatory medication. Past Medical History: Congestive heart failure, hypertension, dementia. Review of Systems: Denies nausea, vomiting, diarrhea. Physical Examination: Lungs: Clear to auscultation bilaterally. Heart: S1, S2. Abdomen: Soft. Extremities: No edema. Impression And Plan: 1. Acute kidney injury secondary to severe prerenal azotemia, nonoliguric acute tubular necrosis. Mo nitor renal function. The patient likely had over-diuresis and acute ischemic tubular necrosis from hypotension and hypovolemia. Continue IV fluids. Avoid nonsteroidal anti-inflammatory medication. 2. Dizziness, possibly from symptomatic hypotension. Continue IV fluids. Adjust blood pressure medi cation and currently blood pressure medication on hold. 3. Congestive heart failure. She looks hypovolemic and she had IV fluids. Diuretics were stopped. 4. Progressive dementia. Continue supportive care. MAGGIE/RONEY Voice ID: [id number] Report ID: [id number]
== END 2025-06-13 14:45 | disposition home or self-care (01) | DRG 683 ==
LOC: ER 16:12 → ERHOLD 21:15 → 4TH 22:30
PROVIDERS: ADMIT Internal Medicine; ATTEND Internal Medicine
DX: N17.0 Acute kidney failure with tubular necrosis (principal); I13.0 Hypertensive heart and chronic kidney disease with heart failure and stage 1 through stage 4 chronic kidney disease, or unspecified chronic kidney disease; I50.32 Chronic diastolic (congestive) heart failure; N18.9 Chronic kidney disease, unspecified; E87.6 Hypokalemia; I95.1 Orthostatic hypotension; E78.00 Pure hypercholesterolemia, unspecified; S09.90XA Unspecified injury of head, initial encounter; I25.10 Atherosclerotic heart disease of native coronary artery without angina pectoris; G30.9 Alzheimer's disease, unspecified; F02.80 Dementia in other diseases classified elsewhere, unspecified severity, without behavioral disturbance, psychotic disturbance, mood disturbance, and anxiety; Z88.5 Allergy status to narcotic agent; Z90.49 Acquired absence of other specified parts of digestive tract; Z87.891 Personal history of nicotine dependence; Z90.710 Acquired absence of both cervix and uterus; W18.30XA Fall on same level, unspecified, initial encounter; Y93.9 Activity, unspecified; Y92.099 Unspecified place in other non-institutional residence as the place of occurrence of the external cause; Y99.9 Unspecified external cause status
CPT/HCPCS: 36415; 70450; 71045; 76770; 80048; 80053; 80061; 80076; 81001; 82570; 83735; 83880; 84300; 84443; 84484; 85025; 85610; 93005; 97116; 97161; 99285; J0696; J1644; J1650; J7120